=== PATIENT | female | born 1960 | race Caucasian/White ===

== ENCOUNTER 2016-09-16 13:33 | Emergency (ER) | payer OTHER ==
[~2016-09-16] VITALS: Ht 154.9 cm; Wt 48.0 kg
[~2016-09-16 13:33] MED LIST: CLEO300C2 PO; CYMB30CA PO; LAMO25TA PO; QUET100 PO; TRAM50 PO; ZYPR10TA PO
[2016-09-16 13:41] VITALS: BP 148/83; PULSE 71; RESP 16; TEMP 97.8
[2016-09-16 13:44] VITALS: BP 148/83; PULSE 74; RESP 16; O2SAT 100
--- NOTE | 2016-09-16 13:48 | PD ---
HPI Chief Complaint: Psychiatric Symptoms Time Seen by Provider: 13:48 Travel History International Travel<30 days: No Contact w/Intl Traveler<30days: No Traveled to known affect area: No History of Present Illness HPI 55-year-old female was brought in as a Akhtar act after her found her in the bathroom with a knife threatening to kill herself. Patient is an opiate addict. Patient seems to be quite irritated and does not want to answer my questions appropriately. So lot of verbal profanities being used by the patient. Does not appear to be in any significant distress however. She did say that she wanted to . [facility] Past Medical History Narrative Medical List of her past medical history as reviewed from the nursing note. Arthritis: Yes Asthma: No Autoimmune Disease: No Blood Disorders: No Bipolar Disorder: Yes Anxiety: No Depression: Yes Heart Rhythm Problems: No Cancer: No Cardiovascular Problems: Yes High Cholesterol: No Chemotherapy: No Chest Pain: No Congestive Heart Failure: No COPD: Yes Cerebrovascular Accident: No Diminished Hearing: No Endocrine: No Gastrointestinal Disorders: Yes GERD: Yes Glaucoma: No Genitourinary: No Headaches: No Hepatitis: No Hiatal Hernia: No Hypertension: Yes (PATIENT STATES "HAS BEEN OFF MEDICATION FOR A WHILE") Immune Disorder: No Kidney Stones: No Musculoskeletal: Yes Neurologic: No Psychiatric: Yes Reproductive: No Respiratory: Yes Migraines: No Myocardial Infarction: No Radiation Therapy: No Renal Failure: No Seizures: No Sickle Cell Disease: No Sleep Apnea: No Ulcer: No Influenza Vaccination: No ?: Not : 5 Para: 3 Miscarriage: 0 : 2 Ectopic : No Ovarian Cysts: No Tubal Ligation: No Past Surgical History Abdominal Surgery: No AICD: No Appendectomy: No Arteriovenous Shunt: No Cardiac Surgery: No Cholecystectomy: No Ear Surgery: No Endocrine Surgery: No Eye Surgery: No Genitourinary Surgery: No Gynecologic Surgery: No Hysterectomy: Yes (2002) Insulin Pump: No Joint Replacement: No Oral Surgery: No Pacemaker: No Thoracic Surgery: No Other Surgery: Yes (HYSTERECTOMY ) Social History Alcohol Use: No Tobacco Use: Yes ( 3/4 PPD X 17 YEARS) Substance Use: Yes (CRACK COCAINE. CLEAN FOR 3 MONTHS, IV DILAUDID) Allergies-Medications (Allergen,Severity, Reaction): Coded Allergies: Geodon (Verified Allergy, Mild, SOB, 02/28/16) Penicillin (Verified Allergy, Mild, CHILDHOOD REACTION, 02/28/16) Uncoded Allergies: MYCINS (Allergy, Mild, Nausea/Vomiting, 04/02/07) Comments List of her allergies reviewed from the nursing note. Reported Meds & Prescriptions Reported Meds & Active Scripts Active Reported Lamictal (Lamotrigine) 25 Mg Tab 25 Mg PO BID Quetiapine (Quetiapine Fumarate) 100 Mg Tab 100 Mg PO HS Olanzapine 10 Mg Tab 10 Mg PO HS Narrative Medication List of her home medications reviewed from the nursing note. Review of Systems Except as stated in HPI: all other systems reviewed are Neg Physical Exam Narrative GENERAL: Awake, alert, disheveled, emaciated SKIN: Warm and dry. HEAD: Atraumatic. Normocephalic. EYES: Pupils equal and round. No scleral icterus. No injection or drainage. ENT: No nasal bleeding or discharge. Mucous membranes pink and moist. NECK: Trachea midline. No JVD. CARDIOVASCULAR: Regular rate and rhythm. No murmur appreciated. RESPIRATORY: No accessory muscle use. Clear to auscultation. Breath sounds equal bilaterally. GASTROINTESTINAL: Abdomen soft, non-tender, nondistended. Hepatic and splenic margins not palpable. MUSCULOSKELETAL: No obvious deformities. No clubbing. No cyanosis. No edema. NEUROLOGICAL: Awake and alert. No obvious cranial nerve deficits. Motor grossly within normal limits. Normal speech. PSYCHIATRIC: Appropriate mood and affect; insight and judgment normal. Data Data Last Documented VS Vital Signs Date Time Temp Pulse Resp B/P Pulse Ox O2 Delivery O2 Flow Rate FiO2 09/17/16 06:26 62 19 124/78 98 Room Air 09/16/16 15:56 98.1 Orders Complete Blood Count With Diff (09/16/16 13:48) Comprehensive Metabolic Panel (09/16/16 13:48) Drug Screen, Random Urine (09/16/16 13:48) Alcohol (Ethanol) (09/16/16 13:48) Psych Screen (09/16/16 13:48) Diphenhydramine (Benadryl) (09/16/16 18:00) Acetaminophen (Tylenol) (09/16/16 18:00) Diphenhydramine (Benadryl) (09/16/16 21:15) Diet Regular Basic (09/17/16 Breakfast) Acetaminophen (Tylenol) (09/17/16 02:15) Clonidine (Catapres) (09/17/16 07:45) Benztropine (Cogentin) (09/17/16 07:45) Loperamide (Imodium) (09/17/16 09:30) Labs Laboratory Tests Test 09/16/16 09/16/16 14:18 14:35 White Blood Count 7.3 TH/MM3 Red Blood Count 4.59 MIL/MM3 Hemoglobin 12.5 GM/DL Hematocrit 37.2 % Mean Corpuscular Volume 80.9 FL Mean Corpuscular Hemoglobin 27.2 PG Mean Corpuscular Hemoglobin 33.6 % Concent Red Cell Distribution Width 17.0 % Platelet Count 609 TH/MM3 Mean Platelet Volume 7.1 FL Neutrophils (%) (Auto) 61.6 % Lymphocytes (%) (Auto) 31.3 % Monocytes (%) (Auto) 5.1 % Eosinophils (%) (Auto) 1.1 % Basophils (%) (Auto) 0.9 % Neutrophils # (Auto) 4.5 TH/MM3 Lymphocytes # (Auto) 2.3 TH/MM3 Monocytes # (Auto) 0.4 TH/MM3 Eosinophils # (Auto) 0.1 TH/MM3 Basophils # (Auto) 0.1 TH/MM3 CBC Comment DIFF FINAL Differential Comment Sodium Level 139 MEQ/L Potassium Level 4.0 MEQ/L Chloride Level 106 MEQ/L Carbon Dioxide Level 24.6 MEQ/L Anion Gap 8 MEQ/L Blood Urea Nitrogen 7 MG/DL Creatinine 0.50 MG/DL Estimat Glomerular Filtration 128 ML/MIN Rate Random Glucose 95 MG/DL Calcium Level 8.9 MG/DL Total Bilirubin 0.3 MG/DL Aspartate Amino Transf 13 U/L (AST/SGOT) Alanine Aminotransferase 22 U/L (ALT/SGPT) Alkaline Phosphatase 107 U/L Total Protein 7.8 GM/DL Albumin 3.7 GM/DL Ethyl Alcohol Level LESS THAN 3 MG/DL Urine Opiates Screen NEG Urine Barbiturates Screen NEG Urine Amphetamines Screen NEG Urine Benzodiazepines Screen POS Urine Cocaine Screen NEG Urine Cannabinoids Screen NEG MDM Medical Decision Making Medical Screen Exam Complete: Yes Emergency Medical Condition: Yes Medical Record Reviewed: Yes Differential Diagnosis Opiate dependence, suicidal ideation, anxiety Narrative Course 3:09 PM blood test results of back and patient is medically cleared for psych screen. Procedures EKG Prior to Arrival: No TatiShravanti R. MD Sep 16, 2016 13:48
[2016-09-16 14:36] LABS: AUTOMATED NEUTROPHIL # 4.5 TH/MM3 (1.8-7.7); BASOPHIL # 0.1 TH/MM3 (0-0.2); BASOPHIL % 0.9 % (0.0-2.0); EOSINOPHIL # 0.1 TH/MM3 (0-0.4); EOSINOPHIL % 1.1 % (0.0-4.0); HEMATOCRIT 37.2 % (35.0-46.0); HEMO FLAGS DIFF FINAL; LYMPH % 31.3 % (9.0-44.0); LYMPHOCYTE # 2.3 TH/MM3 (1.0-4.8); MEAN CELL VOLUME 80.9 FL (80.0-100.0); MEAN CORPUSCULAR HEMOGLOBIN 27.2 PG (27.0-34.0); MEAN CORPUSCULAR HGB CONC 33.6 % (32.0-36.0); MONO % 5.1 % (0.0-8.0); NEUT % 61.6 % (16.0-70.0); PLATELET COUNT 609 TH/MM3 (150-450); RED BLOOD COUNT 4.59 MIL/MM3 (4.00-5.30); WHITE BLOOD COUNT 7.3 TH/MM3 (4.0-11.0)
[2016-09-16 14:45] LABS: ANION GAP 8 MEQ/L (5-15); AST (GOT) 13 U/L (15-37); BICARBONATE 24.6 MEQ/L (21.0-32.0); BLOOD UREA NITROGEN 7 MG/DL (7-18); CHLORIDE 106 MEQ/L (98-107); GLOMERULAR FILTRATION RATE 128 ML/MIN (>89); SODIUM (NA) 139 MEQ/L (136-145)
[2016-09-16 14:48] LABS: ALKALINE PHOSPHATASE 107 U/L (45-117); ALT (GPT) 22 U/L (10-53); TOTAL BILIRUBIN ADULT 0.3 MG/DL (0.2-1.0)
[2016-09-16 14:56] LABS: AMPHETAMINE, URINE NEG (NEG); BARBITURATES, URINE NEG (NEG); COCAINE, URINE NEG (NEG)
[2016-09-16 15:56] VITALS: BP 143/93; PULSE 95; RESP 18; TEMP 98.1; O2SAT 94
[2016-09-16 17:50] VITALS: BP_SYST 129; BP_SYST 166; BP_DIAS 74; BP_DIAS 75; PULSE 56; PULSE 75; RESP 16; O2SAT 100; O2SAT 94
[2016-09-16] MEDS ORDERED: ACETAMINOPHEN 325 MG TAB PO ONE (18:00)
[2016-09-16] MEDS ORDERED: diphenhydrAMINE HCL 50 MG CAP PO ONE ×2 (18:00→21:15)
[2016-09-16 22:18] VITALS: BP 127/81; PULSE 56; RESP 18; O2SAT 98
[2016-09-16] MEDS ORDERED: OLAN10TA PO (23:46)
[2016-09-16] MEDS ORDERED: QUET1TAB8 PO (23:46)
[2016-09-16] MEDS ORDERED: LAMO25 PO (23:48)
[2016-09-17 02:10] VITALS: BP 111/68; PULSE 62; RESP 19; O2SAT 99
[2016-09-17] MEDS ORDERED: ACETAMINOPHEN 325 MG TAB PO ONE (02:15)
[2016-09-17 06:26] VITALS: BP 124/78; PULSE 62; RESP 19; O2SAT 98
[2016-09-17] MEDS ORDERED: cloNIDine HCL 0.2 MG TAB PO ONE (07:45)
[2016-09-17] MEDS ORDERED: BENZTROPINE MESYLATE 1 MG TAB PO ONE (07:45)
--- NOTE | 2016-09-17 09:06 | PD.CONS ---
Provisional Diagnosis Admission Date Hume I. Sustain inducible disorder, opiate use disorder, bipolar by history, Hume II. Deferred Hume III. GERD, back injuries History of Present Illness Service Psychiatry Consult Requested By Primary Care Physician No Primary Care Physician HPI The patient is a 55-year-old woman, single, unemployed, on SSI, domicile with roommate, psychiatric history of bipolar disorder, IV heroine use disorder, multiple psychiatric hospitalizations, suicide attempts, medical history of GERD, back injuries, who was brought in as a Akhtar act after her found her in the bathroom with a knife threatening to kill herself. as per ER note "Patient is an opiate addict. Patient seems to be quite irritated and does not want to answer my questions appropriately. So lot of verbal profanities being used by the patient. Does not appear to be in any significant distress however. She did say that she wanted to ". On psychiatric evaluation today patient was found very irritable, invisible distress, pain, complaining of opiate withdrawal. Patient says that her motivation yesterday was to be Akhtar acted to go to [facility] for opiate detox. She says that she hasn't used any opiates for the last 2 days, because she didn't have any money, she is in cold turkey, "I feel like dying". Patient is motivated to go to detox [facility], she denies suicidal or homicidal ideation. She denies visual and auditory hallucinations. She reports acute muscle pains, lacrimation, diarrhea, nausea, anxiety, sweatings. Patient denies depression, denies perceptual disturbances. She reports daily use of 2-3 bags of heroine, sometimes 2-3 beers of Dilaudid IV, denies alcohol, and other drugs. Review of Systems Constitutional: COMPLAINS OF: Diaphoretic episodes, Dizziness Endocrine: DENIES: Abnorml menstrual pattern, Heat/cold intolerance, Polydipsia , Polyuria, Polyphagia Eyes: COMPLAINS OF: Blurred vision, DENIES: Diplopia, Eye inflammation, Eye pain, Vision loss, Photosensitivity, Double Vision Ears, nose, mouth, throat: DENIES: Tinnitus, Hearing loss, Vertigo, Nasal discharge, Oral lesions, Throat pain, Hoarseness, Ear Pain, Running Nose, Epistaxis, Sinus Pain, Toothache, Odynophagia Respiratory: DENIES: Apneas, Cough, Snoring, Wheezing, Hemoptysis, Sputum production, Shortness of breath Cardiovascular: DENIES: Chest pain, Palpitations, Syncope, Dyspnea on Exertion , PND, Lower Extremity Edema, Orthopnea, Claudication Gastrointestinal: COMPLAINS OF: Diarrhea, Nausea, Vomiting, DENIES: Abdominal pain, Black stools, Bloody stools, Constipation, Difficulty Swallowing, Anorexia Genitourinary: DENIES: Abnormal vaginal bleeding, Dysmenorrhea, Dyspareunia, Sexual dysfunction, Urinary frequency, Urinary incontinence, Urgency, Hematuria , Dysuria, Nocturia, Vaginal discharge Musculoskeletal: COMPLAINS OF: Joint pain, Muscle aches Integumentary: DENIES: Abnormal pigmentation, Pruritus, Rash, Nail changes, Breast masses, Breast skin changes, Nipple discharge Hematologic/lymphatic: DENIES: Bruising, Lymphadenopathy Immunologic/allergic: DENIES: Eczema, Urticaria Neurologic: COMPLAINS OF: Abnormal gait, Headache, Localized weakness, Paresthesias, Seizures, Speech Problems, Tremor, Poor Balance Psychiatric: COMPLAINS OF: Anxiety, DENIES: Confusion, Mood changes, Depression, Hallucinations, Agitation, Suicidal Ideation, Homicidal Ideation, Delusions Past Family Social History Coded Allergies: Geodon (Verified Allergy, Mild, SOB, 02/28/16) Penicillin (Verified Allergy, Mild, CHILDHOOD REACTION, 02/28/16) Uncoded Allergies: MYCINS (Allergy, Mild, Nausea/Vomiting, 04/02/07) Reported Medications Lamotrigine (Lamictal)25 Mg Tab25 Mg PO BID #60 TAB Ref 0 09/16/16 Quetiapine 100 Mg [id number] Mg PO HS #30 TAB Ref 0 09/16/16 Olanzapine 10 Mg Tab10 Mg PO HS #30 TAB Ref 0 09/16/16 Social History Patient was born in [facility], she lives with a roommate in [place], she is unemployed, on SSI, her highest level of education is high school. Physical Exam Vital Signs Vital Signs Date Time Temp Pulse Resp B/P Pulse Ox O2 Delivery O2 Flow Rate FiO2 09/17/16 06:26 62 19 124/78 98 Room Air 09/16/16 15:56 98.1 Mental Status Examination Speech: Unremarkable Orientation: x3 Memory: Unremarkable Thought Process: Logical Thought Content: Unremarkable Hallucination Type: None Attention and Concentration: Good Suicidal Ideation: No Previous Suicide Attempts: Yes Homicidal Ideation: No Previous Homicide Attempts: No Insight: Good Judgement: WNL Affect: Irritable Mood: Anxious Motor Activity: Normal gait Assessment & Plan Problem List: (1) Substance induced mood disorder Assessment & Plan: The moment of this evaluation the patient is acutely withdrawing of opiates, she reports anxiety, joint and muscle pains, vomits, nausea, diarrhea. She denies suicidal or homicidal ideation. Patient is motivated to be discharged to a detox program. At this moment the patient does not meet criteria for psychiatric admission. Patient will benefit greatly of detoxification of opiates and then long-term rehabilitation for. Support, motivation, psycho education provided. Will give clonidine 0.2 mg, benztropine 25 mg, loperamide and ibuprofen for acute opiate withdrawal symptoms. Akhtar act will be lifted. ICD Code: F19.94 Assessment & Plan Estimated LOS: days Link Dougherty MD Sep 17, 2016 09:06
[2016-09-17] MEDS ORDERED: LOPERAMIDE HCL 2 MG CAP PO ONE (09:30)
== END 2016-09-17 11:10 | disposition home or self-care (01) ==
LOC: NEPA 13:33 → NEPJ 09-17 11:10
DX: F31.9 Bipolar disorder, unspecified (principal); K21.9 Gastro-esophageal reflux disease without esophagitis; J44.9 Chronic obstructive pulmonary disease, unspecified; I10 Essential (primary) hypertension
CPT/HCPCS: 80053; 80307; 80320; 85025; 99283; Q0163

== ENCOUNTER 2018-03-18 00:19 | Inpatient (IN) ==
[2018-03-18] MEDS ORDERED: Sod Chloride 0.9% Inj 1,000 ML IV.SIG ONE (00:33)
[2018-03-18] MEDS ORDERED: Naloxone Inj 2 MG/2 ML Vial ONE (00:35)
[2018-03-18] MEDS ORDERED: Naloxone Inj 0.4 MG/ML Vial IV.PUSH ONE ×3 (00:46→00:59)
[2018-03-18 00:53] LABS: ABG PCO2 47 mmHg (38-42); ABG PO2 95 mmHg (61-120)
--- NOTE | 2018-03-18 00:57 | ED ---
HPI General Chief Complaint: Overdose Stated Complaint: Poss overdose/EVAC Time Seen by Provider: 03/18/18 00:33 History of Present Illness HPI Narrative: 57-year-old female presents from her hotel room and care paramedics for evaluation of probable overdose. Patient history was provided according to paramedics by her reported significant other. Patient was last reportedly identified as her normal at 11:30 PM. Patient was found unresponsive in hotel room. Paramedics were called. Patient with GCS of 3 given 2 mg of Narcan IM with improvement of GCS to 9. Patient unable to provide any useful history as essentially unresponsive except to painful stimuli with moaning and reaching for area of discomfort. According to paramedics upon their arrival pupils were pinpoint and have improved to 3 mm after Narcan. No reported injury or fall. Patient with history of substance abuse heroin abuse and alcohol abuse. Patient with reported history of bipolar disorder. Patient reportedly with questionable history of seizure disorder as significant other identified that she does take Ativan and/or Xanax. Patient's random glucose was mildly elevated. Per paramedics no vomiting at the scene or in route to the hospital. Related Data Home Medications Medication Instructions Recorded Confirmed levetiracetam [Keppra] 250 mg PO Q12H 03/20/18 03/20/18 lorazepam 0.5 mg PO BID 03/20/18 03/20/18 ranitidine HCl [Zantac 75] 75 mg PO BID PRN 03/20/18 03/20/18 Allergies Allergy/AdvReac Type Severity Reaction Status Date / Time erythromycin base Allergy Intermediate Nausea/Vomi Verified 03/20/18 00:07 ting penicillin G Allergy Mild CHILDHOOD Unverified 04/15/17 15:22 REACTION ziprasidone Allergy Mild SOB Unverified 04/15/17 15:22 Review of Systems ROS Unobtainable unobtainable due to mental status PMFSH Medical History Medical History Medical history unknown (Acute) Surgical history unknown (Acute) Social History Social History Substance History: Active Abuse Second Hand Smoke Exposure: Yes Smoking Status: Current every day smoker Tobacco Type: Cigarettes How Often Do You Have a Drink Containing Alcohol: Never Recent Travel in [facility] within the Last 8 Weeks: No Recent Out of Country Travel within the Last 8 Weeks: No Substance Abuse Detail Benzodiazepines: Substance Use Status: Active Heroin: Substance Use Status: Active Immunization History Tetanus Immunization: Unable to Assess Hx Influenza Vaccine This Season: Unable to Assess Exam Narrative Exam Narrative: GENERAL: Well-nourished, well-developed patient. With nonrebreather mask in place and nasal trumpet in place with a GCS E:2; M: 5; V:3 ; patient with evidence of vomitus to the right side of the face. SKIN: Focused skin assessment warm/dry. HEAD: Normocephalic. EYES: No scleral icterus. No injection or drainage. NECK: Supple, trachea midline. No JVD or lymphadenopathy. CARDIOVASCULAR: Regular rate and rhythm without murmurs, gallops, or rubs. RESPIRATORY: Breath sounds equal bilaterally. No accessory muscle use. GASTROINTESTINAL: Abdomen soft, non-tender, nondistended. MUSCULOSKELETAL: No cyanosis, or edema. BACK: Nontender without obvious deformity. No CVA tenderness. Course Initial Documented Vital Signs Temperature 97.7 F 03/18/18 00:29 Pulse Rate 103 H 03/18/18 00:29 Respiratory Rate 12 03/18/18 00:29 Blood Pressure 172/122 H 03/18/18 00:29 Pulse Oximetry 95 03/18/18 00:29 Last Documented Vital Signs Temperature 99.1 F 03/19/18 16:00 Pulse Rate 100 H 03/19/18 16:00 Respiratory Rate 17 03/19/18 16:00 Blood Pressure 130/66 03/19/18 16:00 Pulse Oximetry 95 03/19/18 16:00 Critical Care Time Critical Care Time: Yes Total Critical Care Time: 35 Attestation: Aggregate critical care time was 35 minutes. Time to perform other separately billable procedures was not included in the critical care time. My time did not include minutes spent treating any other patients simultaneously or on activities that did not directly contribute to the patient's treatment. The services I provided to this patient were to treat and/or prevent clinically significant deterioration that could result in: Respiratory failure, arrhythmia , I provided critical care services requiring my management, as noted below: Chart data review, documentation time, medication orders and management, vital sign assessments/reviewing monitor data, ordering and reviewing lab tests, ordering and interpreting/reviewing x-rays and diagnostic studies, care of the patient and discussion of the patient with the admitting physicians. Medical Decision Making MDM Narrative Medical decision making narrative: 57-year-old female with bipolar disorder comes in with history of being unresponsive and depressed LOC at this time after 2 mg of Narcan IM patient with O2 sat on nonrebreather mask 78-88% with good waveform. ABG ordered peripheral IV access ordered. IV fluids administered; ABG pH 7.33 PCO2 47 PO2 only 95 on 15 L nonrebreather mask 94% sat hemoglobin 10.7 bicarb is 24 base excess -1, mild respiratory acidosis; patient with decreasing LOC and respiratory effort additional Narcan 0.8 mg administered IV At 1 AM after Narcan patient awakes to verbal stimuli answers simple questions with 'yes'/ 'no responses; chest x-ray reveals no lobar infiltrate; patient sent to CT for imaging of brain. Additional dose of Narcan administered 0.4 mg IV Patient placed on narcan infusion ---case discussed with melter supervisor open hear[employer] --will accept admission to ICU service @ 0700 patient clinically improved narcan infusion tapered. GCS 14. Urine drug screen is resulted in positive for opiates and benzodiazepines--- patient admits to using heroin suspect overdose and respiratory failure and depression related to combination of opiate and benzodiazepine abuse and use. Patient remains somnolent but more awake with passage of time and clearance of opiate ingestion. Patient reportedly chronically on Ativan or Xanax therefore Romazicon not administered due to risk for seizure. CT brain noncontrast reveals no acute abnormalities. CBC is automated differential values are grossly normal range except for mild lymphocytosis. Chemistries remain pending. Differential Diagnosis Differential Diagnosis: Polysubstance ingestion; overdose heroin, alcohol ingestion, metabolic encephalopathy, anoxia Medical Records Medical records reviewed: Yes I reviewed the patient's medical records. Lab Data Result diagrams: 03/19/18 05:50 03/19/18 05:50 Lab Results 03/18/18 03/18/18 03/18/18 Range/Units 00:30 00:50 00:50 WBC 9.1 (4.0-11.0) th/mm3 RBC 4.43 (4.00-5.30) mil/mm3 Hgb 12.8 (11.6-15.3) gm/dL Hct 39.3 (35.0-46.0) % MCV 88.7 (80.0-100.0) fL MCH 28.9 (27.0-34.0) pg MCHC 32.5 (32.0-36.0) % RDW 15.3 (11.6-17.2) % Plt Count 292 (150-450) th/mm3 MPV 8.2 (7.0-11.0) fL Neut % (Auto) 42.5 (16.0-70.0) % Lymph % (Auto) 47.9 H (9.0-44.0) % [place] % (Auto) 8.5 H (0.0-8.0) % Eos % (Auto) 0.8 (0.0-4.0) % Baso % (Auto) 0.3 (0.0-2.0) % Neut # (Auto) 3.9 (1.8-7.7) th/mm3 Lymph # (Auto) 4.4 (1.0-4.8) th/mm3 [place] # (Auto) 0.8 (0.0-0.9) th/mm3 Eos # (Auto) 0.1 (0.0-0.4) th/mm3 Baso # (Auto) 0.0 (0.0-0.2) th/mm3 WBC Differential . Differential Comment Auto diff final Puncture Site Left femoral Patient Temperature 98.6 O2 Saturation 94 (90-100) % ABG pH 7.33 L (7.380-7.420) ABG pCO2 47 H (38-42) mmHg ABG pO2 95 (61-120) mmHg ABG HCO3 24 (22-26) mmol/L ABG O2 Content 14.3 (12.0-20.0) Vol % ABG Base Excess -1.0 (-2-2) mmol/L ABG Methemoglobin 0.3 (0-2) % Hemoglobin 10.7 L (12.0-16.0) G/DL Carboxyhemoglobin 2.5 (0-4) % O2 Delivery Device Liter Flow 10.00 L/M Inspired O2 21 % Critical Value No Sodium 137 (136-145) meq/L Potassium 4.2 (3.5-5.1) meq/L Chloride 104 (98-107) meq/L Carbon Dioxide 22.1 (21.0-32.0) meq/L Anion Gap 11 (5-15) meq/L BUN 6 L (7-18) mg/dL Creatinine 0.94 (0.50-1.00) mg/dL Estimated GFR 61 L (>89) mL/min Random Glucose 214 H (74-106) mg/dL Lactic Acid (0.4-2.0) mmol/L Calcium 8.4 L (8.5-10.1) mg/dL Magnesium (1.5-2.5) mg/dL Total Bilirubin 0.8 (0.2-1.0) mg/dL AST 31 (15-37) U/L ALT 25 (10-53) U/L Alkaline Phosphatase 98 (45-117) U/L Troponin I Less than 0.02 L (0.02-0.05) ng/mL Total Protein 8.4 H (6.4-8.2) g/dL Albumin 3.7 (3.4-5.0) g/dL Lipase 50 L (73-393) U/L Urine Color (Yellw/Straw) Urine Clarity (Clear) Urine pH (5.0-8.5) Ur Specific [place] (1.002-1.035) Urine Protein (Neg-Trace) mg/dL Urine Glucose (UA) (Negative) mg/dL Urine Ketones (Negative) mg/dL Urine Occult Blood (Negative) Urine Nitrate (Negative) Urine Bilirubin (Negative) Urine Urobilinogen (Less than 2) mg/dL Ur Leukocyte Esterase (Negative) Urine RBC (0-3) /hpf Urine WBC (0-5) /hpf Ur Squamous Epith Cells (0-5) /hpf Hyaline Casts (0-3) /lpf Micro UA Comment Urine Culture Comments Nasal Screen MRSA (PCR) (Negative) Salicylates (2.8-20.0) mg/dL Urine Opiates Screen (Neg) Acetaminophen Less than 2.0 L (10.0-30.0) mcg/mL Ur Barbiturates Screen (Neg) Ur Amphetamines Screen (Neg) U Benzodiazepines Scrn (Neg) Urine Cocaine Screen (Neg) U Cannabinoids Screen (Neg) Serum Alcohol Less than 3 (0-5) mg/dL 03/18/18 03/18/18 03/18/18 Range/Units 00:50 00:50 00:50 WBC (4.0-11.0) th/mm3 RBC (4.00-5.30) mil/mm3 Hgb (11.6-15.3) gm/dL Hct (35.0-46.0) % MCV (80.0-100.0) fL MCH (27.0-34.0) pg MCHC (32.0-36.0) % RDW (11.6-17.2) % Plt Count (150-450) th/mm3 MPV (7.0-11.0) fL Neut % (Auto) (16.0-70.0) % Lymph % (Auto) (9.0-44.0) % [place] % (Auto) (0.0-8.0) % Eos % (Auto) (0.0-4.0) % Baso % (Auto) (0.0-2.0) % Neut # (Auto) (1.8-7.7) th/mm3 Lymph # (Auto) (1.0-4.8) th/mm3 [place] # (Auto) (0.0-0.9) th/mm3 Eos # (Auto) (0.0-0.4) th/mm3 Baso # (Auto) (0.0-0.2) th/mm3 WBC Differential Differential Comment Puncture Site Patient Temperature O2 Saturation (90-100) % ABG pH (7.380-7.420) ABG pCO2 (38-42) mmHg ABG pO2 (61-120) mmHg ABG HCO3 (22-26) mmol/L ABG O2 Content (12.0-20.0) Vol % ABG Base Excess (-2-2) mmol/L ABG Methemoglobin (0-2) % Hemoglobin (12.0-16.0) G/DL Carboxyhemoglobin (0-4) % O2 Delivery Device Liter Flow L/M Inspired O2 % Critical Value Sodium (136-145) meq/L Potassium (3.5-5.1) meq/L Chloride (98-107) meq/L Carbon Dioxide (21.0-32.0) meq/L Anion Gap (5-15) meq/L BUN (7-18) mg/dL Creatinine (0.50-1.00) mg/dL Estimated GFR (>89) mL/min Random Glucose (74-106) mg/dL Lactic Acid (0.4-2.0) mmol/L Calcium (8.5-10.1) mg/dL Magnesium (1.5-2.5) mg/dL Total Bilirubin (0.2-1.0) mg/dL AST (15-37) U/L ALT (10-53) U/L Alkaline Phosphatase (45-117) U/L Troponin I (0.02-0.05) ng/mL Total Protein (6.4-8.2) g/dL Albumin (3.4-5.0) g/dL Lipase (73-393) U/L Urine Color Straw (Yellw/Straw) Urine Clarity Clear (Clear) Urine pH 6.0 (5.0-8.5) Ur Specific [place] 1.003 (1.002-1.035) Urine Protein 30 H (Neg-Trace) mg/dL Urine Glucose (UA) 500 or greater (Negative) mg/dL Urine Ketones Negative (Negative) mg/dL Urine Occult Blood Negative (Negative) Urine Nitrate Negative (Negative) Urine Bilirubin Negative (Negative) Urine Urobilinogen Less than 2 (Less than 2) mg/dL Ur Leukocyte Esterase Negative (Negative) Urine RBC 1 (0-3) /hpf Urine WBC 1 (0-5) /hpf Ur Squamous Epith Cells <1 (0-5) /hpf Hyaline Casts 1 (0-3) /lpf Micro UA Comment Cath-culture not ind Urine Culture Comments Cath-cult not ind Nasal Screen MRSA (PCR) (Negative) Salicylates Less than 1.7 L (2.8-20.0) mg/dL Urine Opiates Screen Pos H (Neg) Acetaminophen (10.0-30.0) mcg/mL Ur Barbiturates Screen Neg (Neg) Ur Amphetamines Screen Neg (Neg) U Benzodiazepines Scrn Pos H (Neg) Urine Cocaine Screen Neg (Neg) U Cannabinoids Screen Neg (Neg) Serum Alcohol (0-5) mg/dL 03/18/18 03/18/18 03/18/18 Range/Units 01:00 03:50 10:45 WBC (4.0-11.0) th/mm3 RBC (4.00-5.30) mil/mm3 Hgb (11.6-15.3) gm/dL Hct (35.0-46.0) % MCV (80.0-100.0) fL MCH (27.0-34.0) pg MCHC (32.0-36.0) % RDW (11.6-17.2) % Plt Count (150-450) th/mm3 MPV (7.0-11.0) fL Neut % (Auto) (16.0-70.0) % Lymph % (Auto) (9.0-44.0) % [place] % (Auto) (0.0-8.0) % Eos % (Auto) (0.0-4.0) % Baso % (Auto) (0.0-2.0) % Neut # (Auto) (1.8-7.7) th/mm3 Lymph # (Auto) (1.0-4.8) th/mm3 [place] # (Auto) (0.0-0.9) th/mm3 Eos # (Auto) (0.0-0.4) th/mm3 Baso # (Auto) (0.0-0.2) th/mm3 WBC Differential Differential Comment Puncture Site Patient Temperature O2 Saturation (90-100) % ABG pH (7.380-7.420) ABG pCO2 (38-42) mmHg ABG pO2 (61-120) mmHg ABG HCO3 (22-26) mmol/L ABG O2 Content (12.0-20.0) Vol % ABG Base Excess (-2-2) mmol/L ABG Methemoglobin (0-2) % Hemoglobin (12.0-16.0) G/DL Carboxyhemoglobin (0-4) % O2 Delivery Device Liter Flow L/M Inspired O2 % Critical Value Sodium (136-145) meq/L Potassium (3.5-5.1) meq/L Chloride (98-107) meq/L Carbon Dioxide (21.0-32.0) meq/L Anion Gap (5-15) meq/L BUN (7-18) mg/dL Creatinine (0.50-1.00) mg/dL Estimated GFR (>89) mL/min Random Glucose (74-106) mg/dL Lactic Acid 2.9 H 0.9 (0.4-2.0) mmol/L Calcium (8.5-10.1) mg/dL Magnesium (1.5-2.5) mg/dL Total Bilirubin (0.2-1.0) mg/dL AST (15-37) U/L ALT (10-53) U/L Alkaline Phosphatase (45-117) U/L Troponin I (0.02-0.05) ng/mL Total Protein (6.4-8.2) g/dL Albumin (3.4-5.0) g/dL Lipase (73-393) U/L Urine Color (Yellw/Straw) Urine Clarity (Clear) Urine pH (5.0-8.5) Ur Specific [place] (1.002-1.035) Urine Protein (Neg-Trace) mg/dL Urine Glucose (UA) (Negative) mg/dL Urine Ketones (Negative) mg/dL Urine Occult Blood (Negative) Urine Nitrate (Negative) Urine Bilirubin (Negative) Urine Urobilinogen (Less than 2) mg/dL Ur Leukocyte Esterase (Negative) Urine RBC (0-3) /hpf Urine WBC (0-5) /hpf Ur Squamous Epith Cells (0-5) /hpf Hyaline Casts (0-3) /lpf Micro UA Comment Urine Culture Comments Nasal Screen MRSA (PCR) Not detected (Negative) Salicylates (2.8-20.0) mg/dL Urine Opiates Screen (Neg) Acetaminophen (10.0-30.0) mcg/mL Ur Barbiturates Screen (Neg) Ur Amphetamines Screen (Neg) U Benzodiazepines Scrn (Neg) Urine Cocaine Screen (Neg) U Cannabinoids Screen (Neg) Serum Alcohol (0-5) mg/dL 03/19/18 03/19/18 Range/Units 05:50 05:50 WBC 6.5 (4.0-11.0) th/mm3 RBC 3.40 L (4.00-5.30) mil/mm3 Hgb 10.0 L D (11.6-15.3) gm/dL Hct 30.2 L (35.0-46.0) % MCV 88.9 (80.0-100.0) fL MCH 29.6 (27.0-34.0) pg MCHC 33.3 (32.0-36.0) % RDW 15.3 (11.6-17.2) % Plt Count 292 (150-450) th/mm3 MPV 8.0 (7.0-11.0) fL Neut % (Auto) 49.5 (16.0-70.0) % Lymph % (Auto) 35.5 (9.0-44.0) % [place] % (Auto) 7.7 (0.0-8.0) % Eos % (Auto) 6.8 H (0.0-4.0) % Baso % (Auto) 0.5 (0.0-2.0) % Neut # (Auto) 3.2 (1.8-7.7) th/mm3 Lymph # (Auto) 2.3 (1.0-4.8) th/mm3 [place] # (Auto) 0.5 (0.0-0.9) th/mm3 Eos # (Auto) 0.4 (0.0-0.4) th/mm3 Baso # (Auto) 0.0 (0.0-0.2) th/mm3 WBC Differential . Differential Comment Auto diff final Puncture Site Patient Temperature O2 Saturation (90-100) % ABG pH (7.380-7.420) ABG pCO2 (38-42) mmHg ABG pO2 (61-120) mmHg ABG HCO3 (22-26) mmol/L ABG O2 Content (12.0-20.0) Vol % ABG Base Excess (-2-2) mmol/L ABG Methemoglobin (0-2) % Hemoglobin (12.0-16.0) G/DL Carboxyhemoglobin (0-4) % O2 Delivery Device Liter Flow L/M Inspired O2 % Critical Value Sodium 141 (136-145) meq/L Potassium 3.8 (3.5-5.1) meq/L Chloride 107 (98-107) meq/L Carbon Dioxide 24.0 (21.0-32.0) meq/L Anion Gap 10 (5-15) meq/L BUN 7 (7-18) mg/dL Creatinine 0.52 (0.50-1.00) mg/dL Estimated GFR Greater than 89 (>89) mL/min Random Glucose 78 D (74-106) mg/dL Lactic Acid (0.4-2.0) mmol/L Calcium 8.4 L (8.5-10.1) mg/dL Magnesium 2.1 (1.5-2.5) mg/dL Total Bilirubin 0.7 (0.2-1.0) mg/dL AST 16 (15-37) U/L ALT 17 (10-53) U/L Alkaline Phosphatase 75 (45-117) U/L Troponin I (0.02-0.05) ng/mL Total Protein 6.5 D (6.4-8.2) g/dL Albumin 2.9 L D (3.4-5.0) g/dL Lipase (73-393) U/L Urine Color (Yellw/Straw) Urine Clarity (Clear) Urine pH (5.0-8.5) Ur Specific [place] (1.002-1.035) Urine Protein (Neg-Trace) mg/dL Urine Glucose (UA) (Negative) mg/dL Urine Ketones (Negative) mg/dL Urine Occult Blood (Negative) Urine Nitrate (Negative) Urine Bilirubin (Negative) Urine Urobilinogen (Less than 2) mg/dL Ur Leukocyte Esterase (Negative) Urine RBC (0-3) /hpf Urine WBC (0-5) /hpf Ur Squamous Epith Cells (0-5) /hpf Hyaline Casts (0-3) /lpf Micro UA Comment Urine Culture Comments Nasal Screen MRSA (PCR) (Negative) Salicylates (2.8-20.0) mg/dL Urine Opiates Screen (Neg) Acetaminophen (10.0-30.0) mcg/mL Ur Barbiturates Screen (Neg) Ur Amphetamines Screen (Neg) U Benzodiazepines Scrn (Neg) Urine Cocaine Screen (Neg) U Cannabinoids Screen (Neg) Serum Alcohol (0-5) mg/dL Imaging Data Radiologist's impression: Chest X-Ray 03/18/18 00:33 CONCLUSION: Minimal left basilar atelectasis or scarring. No effusion or pneumothorax. Head CT 03/18/18 00:33 CONCLUSION: 1. No acute intracranial abnormalities. Left maxillary sinus disease. Discharge Plan Discharge Disposition Patient Disposition: Left Against Medical Advice Discharge Order Discharge Orders: AMA Discharge (Routine); Ordered 03/19/18 Ordered By: Jerilyn Crystal Discharge Details Diagnosis: Drug overdose Physicians Team ED Provider: Janeth Jarvis Primary Care Provider: Primary Care Candace Amezcua Attending Provider: Aleyda Moore Discharge Interventions Interventions: ED Discharge Assessment Last Done: 03/18/18 10:45 Vital Signs Last Done: 03/18/18 06:52 Status ED Status: Left Department Discharge Information Discharge Date/Time: 03/18/18 10:45
[2018-03-18 01:14] LABS: Baso % (Auto) 0.3 % (0.0-2.0); Eos # (Auto) 0.1 th/mm3 (0.0-0.4); Eos % (Auto) 0.8 % (0.0-4.0); Hematocrit 39.3 % (35.0-46.0); Hemoglobin 12.8 gm/dL (11.6-15.3); Lymph # (Auto) 4.4 th/mm3 (1.0-4.8); Lymph % (Auto) 47.9 % (9.0-44.0); Mean Corpuscular HGB Conc 32.5 % (32.0-36.0); Mean Corpuscular Hemoglobin 28.9 pg (27.0-34.0); Mean Corpuscular Volume 88.7 fL (80.0-100.0); Mean Platelet Volume 8.2 fL (7.0-11.0); Mono # (Auto) 0.8 th/mm3 (0.0-0.9); Mono % (Auto) 8.5 % (0.0-8.0); Neut # (Auto) 3.9 th/mm3 (1.8-7.7); Neut % (Auto) 42.5 % (16.0-70.0); Platelet Count 292 th/mm3 (150-450); Red Blood Count 4.43 mil/mm3 (4.00-5.30); Red Cell Distribution Width 15.3 % (11.6-17.2); White Blood Count 9.1 th/mm3 (4.0-11.0)
[2018-03-18 01:19] LABS: Bilirubin,Urine Negative (Negative); Clarity,Urine Clear (Clear); Color,Urine Straw (Yellw/Straw); Glucose,Urine (UA) 500 or Greater mg/dL (Negative); Hyaline Casts,Urine 1 /lpf (0-3); Leukocyte Esterase,Urine Negative (Negative); Nitrite,Urine Negative (Negative); Specific Gravity,Urine 1.003 (1.002-1.035); Squamous Epithelial Cell,Urine <1 /hpf (0-5)
[2018-03-18 01:20] LABS: Amphetamine Screen,Urine Neg (Neg); Barbiturate Screen,Urine Neg (Neg); Cannabinoid Screen,Urine Neg (Neg); Cocaine Screen,Urine Neg (Neg)
[2018-03-18 01:22] LABS: Opiate Screen,Urine Pos (Neg)
--- NOTE | 2018-03-18 01:31 | CT ---
EXAM DATE: 03/18/2018 1:12 AM EDT AGE/SEX: 57 years / Female INDICATIONS: Altered mental status. CLINICAL DATA: This is the patient's initial encounter. Patient reports that signs and symptoms have been present for 1 day and indicates a pain score of Nonresponsive. MEDICAL/SURGICAL HISTORY: Non-responsive. Non-responsive. RADIATION DOSE: 56.35 CTDI (mGy) COMPARISON: No prior exams available for comparison. TECHNIQUE: CT of the head without contrast. Using automated exposure control and adjustment of the mA and/or kV according to patient size, radiation dose was kept as low as reasonably achievable to ob tain optimal diagnostic quality images. DICOM format image data is available electronically for revi ew and comparison. FINDINGS: Cerebrum: The ventricles are normal for age. No evidence of midline shift, mass lesion, hemorrhage or acute infarction. No extraaxial fluid collections are seen. Posterior Fossa: The cerebellum and brainstem are intact. The 4th ventricle is midline. The cerebe llopontine angle is unremarkable. Extracranial: The visualized portion of the orbits is intact. Small amount of fluid in left maxillar y sinus Skull: The calvaria is intact. No evidence of skull fracture. CONCLUSION: 1. No acute intracranial abnormalities. Left maxillary sinus disease. Electronically signed by: Iglesia Alfonso MD 03/18/2018 1:30 AM EDT
[2018-03-18 01:37] LABS: Alkaline Phosphatase 98 U/L (45-117); Total Protein 8.4 g/dL (6.4-8.2)
--- NOTE | 2018-03-18 01:56 | XR ---
EXAM DATE: 03/18/2018 1:09 AM EDT AGE/SEX: 57 years / Female INDICATIONS: . Shortness of breath status post possible overdose. CLINICAL DATA: This is the patient's initial encounter. Patient reports that signs and symptoms have been present for 1 day and indicates a pain score of Nonresponsive. MEDICAL/SURGICAL HISTORY: Non-responsive. Non-responsive. COMPARISON: No prior exams available for comparison. FINDINGS: A single AP view of the chest demonstrates the lungs to be symmetrically aerated without evidence of mass, infiltrate or effusion. Minimal basilar atelectasis or scarring suspected on the left side. The cardiomediastinal contours are unremarkable. Osseous structures are intact. CONCLUSION: Minimal left basilar atelectasis or scarring. No effusion or pneumothorax. Electronically signed by: Iglesia Alfonso MD 03/18/2018 1:54 AM EDT
[2018-03-18 02:09] LABS: Alanine Aminotransferase 25 U/L (10-53); Albumin 3.7 g/dL (3.4-5.0); Anion Gap 11 meq/L (5-15); Aspartate Aminotransferase 31 U/L (15-37); Blood Urea Nitrogen 6 mg/dL (7-18); Calcium 8.4 mg/dL (8.5-10.1); Carbon Dioxide 22.1 meq/L (21.0-32.0); Chloride 104 meq/L (98-107); Glomerular Filtration Rate 61 mL/min (>89); Glucose,Random 214 mg/dL (74-106); Lipase 50 U/L (73-393); Sodium 137 meq/L (136-145)
[2018-03-18 02:10] LABS: Potassium 4.2 meq/L (3.5-5.1)
[2018-03-18] MEDS ORDERED: Vancomycin Inj 1 GM/200 ML PIGGYBACK IV.SIG ONE (03:30)
[2018-03-18] MEDS ORDERED: Bisacodyl 10 MG Supp RECTAL PRN (07:01)
[2018-03-18] MEDS ORDERED: Magnesium Sulfate Inj 2 GM in Sodium Chlor 0.9% Inj 96 ML IV.SIG PRN (07:06)
[2018-03-18] MEDS ORDERED: Potassium Chlor 40 mEq Premix 40 MEQ/100 ML PIGGYBACK IV.SIG PRN ×2 (07:06)
[2018-03-18] MEDS ORDERED: Potassium Phosphate Inj 30 MMOL in Sodium Chlor 0.9% Inj 250 ML IV.SIG PRN (07:06)
[2018-03-18] MEDS ORDERED: Sodium Phosphate Inj 30 MMOL in Sodium Chlor 0.9% Inj 250 ML IV.SIG PRN (07:06)
[2018-03-18] MEDS ORDERED: Magnesium Oxide 400 MG Tablet PO PRN (07:06)
[2018-03-18] MEDS ORDERED: Potassium Phosphate 500 MG Soluble Tablet PO PRN ×2 (07:06)
[2018-03-18] MEDS ORDERED: Magnesium Sulfate Inj 4 GM in Sodium Chlor 0.9% Inj 92 ML IV.SIG PRN (07:06)
[2018-03-18] MEDS ORDERED: Potassium Chloride 25 MEQ Effervescent Tablet PO PRN (07:06)
[2018-03-18] MEDS ORDERED: Potassium Chlor 20 mEq Premix 20 MEQ/100 ML PIGGYBACK IV.SIG PRN ×2 (07:06)
--- NOTE | 2018-03-18 07:58 | P.HPCC ---
History of Present Illness Service: Critical Care Medicine Primary Care Physician: No Primary Care Physician Chief Complaint: altered mental status History of Present Illness: This is a 57-year-old female who was brought in by EMS from her hotel room for acute altered mental status and likely overdose. Per the ER report, patient was found unresponsive in her hotel room. Initial patient's GCS was 3. She was given 2 mill grams of Narcan IM with improvement into her GCS to 9. She was started on a Narcan drip in the emergency department and her mental status continued to improve. Patient has a history of heroin abuse and alcohol abuse. When I evaluated the patient she is moaning. She is awake and checking her airway, but will not provide any additional information to me. She will not answer my questions or follow commands. Review systems is unobtainable. She remains on a Narcan infusion. Inpatient Certification: I certify that the inpatient services were ordered in accordance with Medicare regulations governing the order. This includes certification that hospital inpatient services are reasonable and necessary and in the case of services not specified as inpatient-only under 42 CFR 419.22(n), that they are appropriately provided as inpatient services in accordance to with the 2-midnight benchmark under 43 CFR 412.3(e) Estimated Total Length of Stay (Days): 4 Plans for Post Hospital Care: Not yet determined Review of Systems unobtainable due to mental condition PMFSH - History History Provided By: Medical Record - Medical / Surgical Hx Neg / Unobtainable Medical Problems Denied: Unable to Obtain Surgical History: Unable to Obtain - Medical History Medical History: Medical History (Last Reviewed 03/18/18 @ 00:53 by Janeth Jarvis MD) Medical history unknown Surgical history unknown - Tobacco History Smoking Status: Unknown if ever smoked - Alcohol History How Often Do You Have a Drink Containing Alcohol: Unable to Obtain - Substance Use Type Benzodiazepines Status: Active Heroin Status: Active - Travel History Recent Travel in the [place] Within the Last 8 Weeks: No Recent Travel Out of the Country Within the Last 8 Weeks: No - Immunization History Tetanus Immunization: Unable to Assess Hx Influenza Vaccine This Season: Unable to Assess Medications and Allergies Active Medications: Active Medications Al Hydroxide/Mg Hydroxide (Milk Of Magnjosh Liq) 30 ml PO Q12H PRN PRN Reason: Mild Constipation Albuterol (Duoneb Neb (Prn)) 1 ampul NEB Q2HR NEB PRN PRN Reason: WHEEZING Bisacodyl (Dulcolax Supp) 10 mg RECTAL DAILY PRN PRN Reason: SEVERE CONSITIPATION Chlorhexidine Gluconate (Chlorhexidine 2% Cloth) 3 pack TOPICAL DAILY@0400 MAURIZIO Stop: 03/24/18 03:59 Chlorhexidine Gluconate (Chlorhexidine 2% Cloth) 3 pack TOPICAL DAILY@0400 PRN PRN Reason: Extra cloth needed Stop: 03/24/18 03:59 Famotidine (Pepcid Pf Inj) 20 mg IV.PUSH Q12HR MAURIZIO Naloxone HCl 4 mg/ Dextrose 250 mls @ 12.5 mls/hr IV.CONT TITRATE PRN; Protocol PRN Reason: Ordered RASS Last Titration: 03/18/18 07:33 Dose: 0.2 mg/hr, 12.5 mls/hr Potassium Chloride/Sodium Chloride (Ns + Kcl 20 Meq Inj) 1,000 mls @ 100 mls/ hr IV.CONT .Q10H MAURIZIO Magnesium Sulfate Inj 4 gm/ (Sodium Chloride) 100 mls @ 50 mls/hr IV.SIG UNSCH PRN PRN Reason: For Magnesium 0.9 - 1.1 mg/dL Magnesium Sulfate Inj 2 gm/ (Sodium Chloride) 100 mls @ 50 mls/hr IV.SIG UNSCH PRN PRN Reason: For Magnesium 1.2 - 1.6 mg/dL Potassium Chloride (Kcl 40 Meq Premix Inj) 40 meq in 100 mls @ 25 mls/hr IV.SIG Q2H PRN PRN Reason: For Potassium 2.8 - 3.2 mEq/L Potassium Chloride (Kcl 20 Meq Premix Inj) 20 meq in 100 mls @ 50 mls/hr IV.SIG Q2H PRN PRN Reason: For Potassium 3.3 - 3.5 mEq/L Potassium Chloride (Kcl 40 Meq Premix Inj) 40 meq in 100 mls @ 25 mls/hr IV.SIG UNSCH PRN PRN Reason: For Potassium 3.3 - 3.5 mEq/L Potassium Chloride (Kcl 20 Meq Premix Inj) 20 meq in 100 mls @ 50 mls/hr IV.SIG Q2H PRN PRN Reason: For Potassium 2.8 - 3.2 mEq/L Potassium Phosphate 30 mmol/ (Sodium Chloride) 260 mls @ 42 mls/hr IV.SIG UNSCH PRN PRN Reason: SEE LABEL COMMENTS Sodium Phosphate 30 mmol/ (Sodium Chloride) 260 mls @ 42 mls/hr IV.SIG UNSCH PRN PRN Reason: For Phosphorus < 2.5 mg/dL Lactulose (Lactulose Liq) 30 ml PO DAILY PRN PRN Reason: SEVERE CONSITIPATION Magnesium Oxide (Mag-Ox) 800 mg PO UNSCH PRN PRN Reason: For Magnesium 1.2 - 1.6 mg/dL Potassium Bicarb/Potassium Chloride (K-Lyte Cl Eff) 50 meq PO UNSCH PRN PRN Reason: For Potassium 3.3 - 3.5 mEq/L Potassium Phosphate (K-Phos Original) 2,000 mg PO Q4H PRN PRN Reason: Phosphorus Less Than 2.5 mg/dL Potassium Phosphate (K-Phos Original) 2,000 mg PO UNSCH PRN PRN Reason: SEE LABEL COMMENTS Senna/Docusate Sodium (Meaghan-Colace) 1 tab PO BID MAURIZIO Sennosides (Senokot) 17.2 mg PO Q12H PRN PRN Reason: Moderate Constipation Sodium Chloride (Ns Flush) 2 ml IV.FLUSH BID MAURIZIO Sodium Chloride (Ns Flush) 2 ml IV.FLUSH PRN PRN PRN Reason: FLUSH AFTER USING IV ACCESS Allergies Allergy/AdvReac Type Severity Reaction Status Date / Time penicillin G Allergy Mild CHILDHOOD Unverified 04/15/17 15:22 REACTION ziprasidone Allergy Mild SOB Unverified 04/15/17 15:22 MYCINS Allergy Mild Nausea/Vomi Uncoded 04/02/07 11:29 ting Home Medications Medication Instructions Recorded Confirmed Type Unable to Obtain Home Meds 03/18/18 03/18/18 History Results - Labs CBC & Chem 7: 03/18/18 00:50 03/18/18 00:50 Labs: Short CBC 03/18/18 Range/Units 00:50 WBC 9.1 (4.0-11.0) th/mm3 Hgb 12.8 (11.6-15.3) gm/dL Hct 39.3 (35.0-46.0) % Plt Count 292 (150-450) th/mm3 [facility] 03/18/18 00:50 Sodium 137 Potassium 4.2 Chloride 104 Carbon Dioxide 22.1 BUN 6 L Creatinine 0.94 Calcium 8.4 L Cardiac Enzymes 03/18/18 Range/Units 00:50 Troponin I Less than 0.02 L (0.02-0.05) ng/mL Liver Function 03/18/18 Range/Units 00:50 Total Bilirubin 0.8 (0.2-1.0) mg/dL AST 31 (15-37) U/L ALT 25 (10-53) U/L Alkaline Phosphatase 98 (45-117) U/L Albumin 3.7 (3.4-5.0) g/dL Urine 03/18/18 Range/Units 00:50 Urine Color Straw (Yellw/Straw) Urine Clarity Clear (Clear) Urine pH 6.0 (5.0-8.5) Ur Specific [place]ley 1.003 (1.002-1.035) Urine Protein 30 H (Neg-Trace) mg/dL Urine Glucose (UA) 500 or greater (Negative) mg/dL - Imaging Impressions Chest X-Ray 03/18/18 00:33 CONCLUSION: Minimal left basilar atelectasis or scarring. No effusion or pneumothorax. Head CT 03/18/18 00:33 CONCLUSION: 1. No acute intracranial abnormalities. Left maxillary sinus disease. Exam Vital signs: Vital Signs 03/18/18 00:29 03/18/18 00:40 03/18/18 00:47 Temperature 36.5 C Pulse Rate 103 H 100 H Respiratory Rate 12 12 Blood Pressure 172/122 H 123/97 H Pulse Oximetry 95 92 L 96 03/18/18 00:49 03/18/18 01:37 03/18/18 03:38 Temperature Pulse Rate 93 H Respiratory Rate 18 Blood Pressure 116/75 Pulse Oximetry 95 98 94 L 03/18/18 05:02 03/18/18 06:52 03/18/18 07:08 Temperature Pulse Rate 88 119 H 114 H Respiratory Rate 16 18 18 Blood Pressure 119/68 100/56 L 150/80 H Pulse Oximetry 95 93 L 94 L Intake & Output 03/17/18 03/18/18 03/18/18 18:59 06:59 18:59 Intake Total 1100 / 1100 Balance 1100 / 1100 Weight 81.647 kg Intake: IV 1100 / 1100 Flagyl 500 MG Inj 100 ML @ 100 100 / 100 mls/hr IV.SIG ONCE ONE Rx#: [id number] Narrative: GENERAL: Middle-aged female that appears much older than stated age, lying in bed, nasal cannula, moaning, no acute distress HEENT: Normocephalic. Atraumatic. Pupils pinpoint, round, reactive, conjugate. Mucous membranes are moist NECK: Trachea is midline. There is no JVD. CHEST: Nasal cannula oxygen. Airway widely patent. Equal chest rise. Unlabored. CARDIOVASCULAR: Normal rate, regular rhythm. Sinus. ABDOMEN: Soft, nontender, nondistended. No guarding. MUSCULOSKELETAL: Pulses 2+. No peripheral edema. NEUROLOGICAL: RASS -2. Arouses to voice. Volitionally will not follow commands , but moves all extremities spontaneously and briskly purposeful. Caprini VTE Risk Assessment Caprini VTE Risk Assessment: Moderate/High Risk (score >= 2) Caprini Risk Assessment Model: Point Value = 1 Point Value = 2 Point Value = 3 Point Value = 5 Age 41-60 Minor surgery BMI > 25 kg/m2 Swollen legs Varicose veins or History of unexplained or recurrent spontaneous Oral contraceptives or hormone replacement Sepsis (< 1 month) Serious lung disease, including pneumonia (< 1 month) Abnormal pulmonary function Acute myocardial infarction Congestive heart failure (< 1 month) History of inflammatory bowel disease Medical patient at bed rest Age 61-74 Arthroscopic surgery Major open surgery (> 45 min) Laparoscopic surgery (> 45 min) Malignancy Confined to bed (> 72 hours) Immobilizing plaster cast Central venous access Age >= 75 History of VTE Family history of VTE Factor V Leiden Prothrombin [id number] Lupus anticoagulant Anticardiolipin antibodies Elevated serum homocysteine Heparin-induced thrombocytopenia Other congenital or acquired thrombophilia Stroke (< 1 month) Elective arthroplasty Hip, pelvis, or leg fracture Acute spinal cord injury (< 1 month) Prophylaxis Regimen: Total Risk Factor Score Risk Level Prophylaxis Regimen 0-1 Low Early ambulation 2 Moderate Order ONE of the following: *Sequential Compression Device (SCD) *Heparin 5000 units SQ BID 3-4 Higher Order ONE of the following medications: *Heparin 5000 units SQ TID *Enoxaparin/Lovenox 40 mg SQ daily (WT < 150 kg, CrCl > 30 mL/min) *Enoxaparin/Lovenox 30 mg SQ daily (WT < 150 kg, CrCl > 10-29 mL/min) *Enoxaparin/Lovenox 30 mg SQ BID (WT < 150 kg, CrCl > 30 mL/min) AND/OR *Sequential Compression Device (SCD) 5 or more Highest Order ONE of the following medications: *Heparin 5000 units SQ TID (Preferred with Epidurals) *Enoxaparin/Lovenox 40 mg SQ daily (WT < 150 kg, CrCl > 30 mL/min) *Enoxaparin/Lovenox 30 mg SQ daily (WT < 150 kg, CrCl > 10-29 mL/min) *Enoxaparin/Lovenox 30 mg SQ BID (WT < 150 kg, CrCl > 30 mL/min) AND *Sequential Compression Device (SCD) Assessment and Plan - Assessment and Plan Plan: Assessment: 57-year-old female with toxic encephalopathy secondary to opiate overdose on Narcan infusion. Admit ICU. Wean from naloxone infusion as tolerated. Active problems: Toxic encephalopathy Opiate overdose Acute hypercarbic respiratory failure secondary to opiate overdose Opiate dependence Substance abuse Plan: Narcan infusion, wean as tolerated Wean nasal cannula for goal SPO2 greater than 90% Watch for substance withdrawal symptoms No indication for Malone catheter at this time, will remove Admit to ICU Advance diet after mental status improves Frequent neurochecks Avoid long-acting sedatives SCDs, Lovenox Transfer to hospitalist service and likely transfer out of ICU when encephalopathy resolves.
[2018-03-18] MEDS: Enoxaparin Inj 40 MG/0.4 ML Syringe SQ SCH (09:12)
[2018-03-18] MEDS: Famotidine PF Inj 20 MG/2 ML Vial IV.PUSH SCH ×2 (09:55→22:33)
[2018-03-18] MEDS: Senna/Docusate Sodium 8.6/50 MG Tablet PO SCH ×2 (12:22→22:34)
--- NOTE | 2018-03-18 14:47 | ECG ---
Date Performed: 03/18/2018 Time Performed: 00:34:15 PTAGE: 57 years EKG: Sinus rhythm WITH SHORT ND INTERVAL (NO DELTA WAVE, NOT ECTOPIC) NONSPECIFIC T-WAVE ABNORMALITY BORDERLINE ECG NO PREVIOUS TRACING DOCTOR: Josr Daniel Interpretating Date/Time 03/18/2018 14:47:20
[2018-03-18] MEDS ORDERED: Naloxone Inj 0.4 MG/ML Vial IV.PUSH PRN (20:30)
[2018-03-19] MEDS ORDERED: Chlorhexidine Gluconate 2% 1 Pack (2 Cloths) TOPICAL SCH (04:00)
[2018-03-19] MEDS ORDERED: Chlorhexidine Gluconate 2% 1 Pack (2 Cloths) TOPICAL PRN (04:00)
[2018-03-19 06:59] LABS: Baso % (Auto) 0.5 % (0.0-2.0); Eos # (Auto) 0.4 th/mm3 (0.0-0.4); Eos % (Auto) 6.8 % (0.0-4.0); Hematocrit 30.2 % (35.0-46.0); Lymph # (Auto) 2.3 th/mm3 (1.0-4.8); Lymph % (Auto) 35.5 % (9.0-44.0); Mean Corpuscular HGB Conc 33.3 % (32.0-36.0); Mean Corpuscular Hemoglobin 29.6 pg (27.0-34.0); Mean Corpuscular Volume 88.9 fL (80.0-100.0); Mono # (Auto) 0.5 th/mm3 (0.0-0.9); Mono % (Auto) 7.7 % (0.0-8.0); Neut # (Auto) 3.2 th/mm3 (1.8-7.7); Neut % (Auto) 49.5 % (16.0-70.0); Platelet Count 292 th/mm3 (150-450); Red Cell Distribution Width 15.3 % (11.6-17.2); White Blood Count 6.5 th/mm3 (4.0-11.0)
[2018-03-19 07:17] LABS: Alanine Aminotransferase 17 U/L (10-53); Albumin 2.9 g/dL (3.4-5.0); Alkaline Phosphatase 75 U/L (45-117); Anion Gap 10 meq/L (5-15); Aspartate Aminotransferase 16 U/L (15-37); Blood Urea Nitrogen 7 mg/dL (7-18); Calcium 8.4 mg/dL (8.5-10.1); Chloride 107 meq/L (98-107); Glomerular Filtration Rate Greater Than 89 mL/min (>89); Glucose,Random 78 mg/dL (74-106); Magnesium 2.1 mg/dL (1.5-2.5); Potassium 3.8 meq/L (3.5-5.1); Sodium 141 meq/L (136-145); Total Protein 6.5 g/dL (6.4-8.2)
--- NOTE | 2018-03-19 08:43 | P.PNIM ---
Subjective Interval history: Patient seen, sleeping but easily arousable. Groggy, oriented 3. No chest pain, no shortness of breath. Sitter in place. Denied any suicidal ideations. Physical Exam Vital signs: Vital Signs 03/18/18 09:30 03/18/18 10:45 03/18/18 12:00 Temperature 98.6 F Pulse Rate 102 H 96 H 94 H Respiratory Rate 14 8 L Blood Pressure 132/82 112/64 Pulse Oximetry 95 97 03/18/18 16:00 03/18/18 20:00 03/19/18 00:00 Temperature 99.4 F 99.9 F H 99.4 F Pulse Rate 91 H 82 102 H Respiratory Rate 10 L 18 18 Blood Pressure 108/97 H 104/72 99/58 L Pulse Oximetry 100 94 L 03/19/18 04:00 Temperature 98.6 F Pulse Rate 82 Respiratory Rate 18 Blood Pressure 121/63 Pulse Oximetry 95 Intake & Output 03/18/18 03/19/18 03/19/18 18:59 06:59 18:59 Intake Total 1000 / 1000 Output Total 0 / 0 0 / 0 Balance 1000 / 1000 0 / 0 Weight 65.8 kg Intake: IV 1000 / 1000 NS + KCl 20 mEq Inj 1,000 ML @ 1000 / 1000 100 mls/hr IV.CONT .Q10H [facility] Rx #:[id number] Output: Urine 0 / 0 0 / 0 Other: # Voids 0 0 # Bowel Movements 0 0 Narrative: GENERAL: Middle-aged female that appears much older than stated age, not in distress. HEENT: Normocephalic. Atraumatic. Pupils equal reactive to light. CHEST: Clear breath sounds CARDIOVASCULAR: Normal rate, regular rhythm. Sinus. ABDOMEN: Soft, nontender, nondistended. No guarding. MUSCULOSKELETAL: Pulses 2+. No peripheral edema. NEUROLOGICAL: Sleeping, easily arousable, oriented to. Also oriented to time but took a while. No focal deficit Denied any suicidal ideations. - Urinary Catheter Management Indwelling Urethral Catheter Cath placed during this visit: yes Reason for continuing: Hourly intake/output Insertion date: 03/18/18 Insertion time: 05:35 Results - Labs CBC & Chem 7: 03/19/18 05:50 03/19/18 05:50 Laboratory Results - last 24 hr 03/18/18 03/19/18 03/19/18 10:45 05:50 05:50 WBC 6.5 RBC 3.40 L Hgb 10.0 L D Hct 30.2 L MCV 88.9 MCH 29.6 MCHC 33.3 RDW 15.3 Plt Count 292 MPV 8.0 Neut % (Auto) 49.5 Lymph % (Auto) 35.5 [place] % (Auto) 7.7 Eos % (Auto) 6.8 H Baso % (Auto) 0.5 Neut # (Auto) 3.2 Lymph # (Auto) 2.3 [place] # (Auto) 0.5 Eos # (Auto) 0.4 Baso # (Auto) 0.0 WBC Differential . Differential Comment Auto diff final Sodium 141 Potassium 3.8 Chloride 107 Carbon Dioxide 24.0 Anion Gap 10 BUN 7 Creatinine 0.52 Estimated GFR Greater than 89 Random Glucose 78 D Calcium 8.4 L Magnesium 2.1 Total Bilirubin 0.7 AST 16 ALT 17 Alkaline Phosphatase 75 Total Protein 6.5 D Albumin 2.9 L D Nasal Screen MRSA (PCR) Not detected Assessment and Plan - Plan 57-year-old female with toxic encephalopathy secondary to opiate overdose on Narcan infusion. Toxic encephalopathy Opiate overdose Acute hypercarbic respiratory failure secondary to opiate overdose Opiate dependence Substance abuse -Weaned from Narcan, continue oxygen support, watch out for withdrawal. Mental status is better. No suicidal ideations. Start physical therapy. SCDs, Lovenox Possible discharge tomorrow.
[2018-03-19] MEDS: Famotidine PF Inj 20 MG/2 ML Vial IV.PUSH SCH (10:07)
[2018-03-19] MEDS: Enoxaparin Inj 40 MG/0.4 ML Syringe SQ SCH (10:08)
[2018-03-19] MEDS: Senna/Docusate Sodium 8.6/50 MG Tablet PO SCH (10:09)
--- NOTE | 2018-03-19 20:16 | P.AMA ---
AMA Note - AMA Note AMA Statement: Patient Gladys Stuart has decided to leave the hospital against medical advice. This patient has the capacity to refuse care and understands the risks of leaving, including permanent disability and/or , and has had an opportunity to ask questions about his/her condition. The patient has been informed that he/she may return for care at any time, and follow up has been arranged/advised. - AMA Note Discharge Disposition: Left Against Medical Advice
== END 2018-03-19 21:23 | disposition left against medical advice (07) ==
LOC: NEPC 00:19 → NEDA 03:56 → N03 10:41 → N05 20:46
PROVIDERS: ADMIT Hospitalist; ATTEND Hospitalist

== ENCOUNTER 2018-09-02 09:56 | Inpatient (IN) ==
[2018-09-02 12:05] LABS: Baso # (Auto) 0.1 th/mm3 (0.0-0.2); Baso % (Auto) 0.8 % (0.0-2.0); Eos # (Auto) 0.3 th/mm3 (0.0-0.4); Hematocrit 35.7 % (35.0-46.0); Hemoglobin 12.7 gm/dL (11.6-15.3); Lymph # (Auto) 1.5 th/mm3 (1.0-4.8); Lymph % (Auto) 16.3 % (9.0-44.0); Mean Corpuscular HGB Conc 35.5 % (32.0-36.0); Mean Corpuscular Hemoglobin 30.9 pg (27.0-34.0); Mean Corpuscular Volume 87.2 fL (80.0-100.0); Mean Platelet Volume 7.6 fL (7.0-11.0); Mono # (Auto) 0.5 th/mm3 (0.0-0.9); Mono % (Auto) 5.6 % (0.0-8.0); Neut # (Auto) 6.9 th/mm3 (1.8-7.7); Neut % (Auto) 74.3 % (16.0-70.0); Platelet Count 421 th/mm3 (150-450); Red Blood Count 4.09 mil/mm3 (4.00-5.30); Red Cell Distribution Width 16.1 % (11.6-17.2); White Blood Count 9.2 th/mm3 (4.0-11.0)
[2018-09-02 12:29] LABS: Calcium 8.8 mg/dL (8.5-10.1); Carbon Dioxide 27.3 meq/L (21.0-32.0); Potassium 4.2 meq/L (3.5-5.1)
--- NOTE | 2018-09-02 13:01 | ED ---
HPI General Chief complaint: Skin/Abscess/Foreign Body Stated complaint: hip pain Time Seen by Provider: 09/02/18 11:16 Source: patient History of Present Illness HPI narrative: Patient is a 57-year-old female with a history of IV drug use, bipolar disorder, COPD, GERD, and depression. Patient was apparently at [facility] for detox and was sent in for evaluation of right hip abscess and left hip pain. Patient reports she started having redness in the right hip approximately a week ago with some red bumps. These developed into some abscesses one which opened spontaneously. She reports she was seen elsewhere and put on Bactrim 3 days ago. She has been taking the Bactrim but has developed additional abscesses to the right hip. One is also developing on the left hip. Patient complains of chills but no fever. She complains of some nausea which started today but no vomiting so far. Her other complaint is significant pain in her left knee and left hip. She reports that typically she uses a walker but now she is unable to even put weight on her left leg. Related Data Home Medications Medication Instructions Recorded Confirmed Lasix 09/02/18 Plavix 09/02/18 Previous Rx's Medication Instructions Recorded sulfamethoxazole-trimethoprim 1 tab PO Q12H #20 tab 07/07/18 [Bactrim DS] Allergies Allergy/AdvReac Type Severity Reaction Status Date / Time erythromycin base Allergy Intermediate Nausea/Vomi Verified 09/02/18 10:08 ting penicillin G Allergy Mild CHILDHOOD Verified 09/02/18 10:08 REACTION ziprasidone Allergy Mild SOB Verified 09/02/18 10:08 Review of Systems ROS: all other systems reviewed are negative [facility] Medical History Medical History Acid reflux (Chronic) Chronic pain (Chronic) Seizure (Chronic) Osteomyelitis hip (Resolved) Surgical History Surgical History S/P foot surgery, right (Chronic) S/P right knee arthroscopy (Chronic) H/O: hysterectomy (Chronic) History of hip surgery (Chronic) Social History Social History Substance History: No History of Abuse Second Hand Smoke Exposure: No Smoking Status: Current some day smoker Tobacco Type: Cigarettes How Often Do You Have a Drink Containing Alcohol: Monthly or less Recent Travel in [facility] within the Last 8 Weeks: No Recent Out of Country Travel within the Last 8 Weeks: No Immunization History Tetanus Immunization: Unsure Exam Narrative Exam Narrative: GENERAL: [-] SKIN: 4x4cm open wound with yellow exudate on left hip surrounded by erythema, second abscess approximately same size present. Entire hip erythematous. Indurated area approx. 2x2 on left hip. HEAD: Atraumatic. Normocephalic. EYES: Pupils equal and round. No scleral icterus. No injection or drainage. ENT: No nasal bleeding or discharge. Mucous membranes pink and moist. Edentulous NECK: Trachea midline. No JVD. CARDIOVASCULAR: Regular rate and rhythm. No murmur appreciated. RESPIRATORY: No accessory muscle use. Clear to auscultation. Breath sounds equal bilaterally. GASTROINTESTINAL: Abdomen soft, non-tender, nondistended. Hepatic and splenic margins not palpable. MUSCULOSKELETAL: significant pain with flexion of left knee, notable crepitus on flexion. NEUROLOGICAL: Awake and alert. No obvious cranial nerve deficits. Decreased MS 2-3/5 Normal speech. PSYCHIATRIC: Appropriate mood and affect; insight and judgment normal. Course Initial Documented Vital Signs Temperature 98.7 F 09/02/18 10:06 Pulse Rate 90 09/02/18 10:06 Respiratory Rate 18 09/02/18 10:06 Blood Pressure 154/90 H 09/02/18 10:06 Pulse Oximetry 97 09/02/18 10:06 Last Documented Vital Signs Temperature 98.9 F 09/02/18 14:43 Pulse Rate 88 09/02/18 17:28 Respiratory Rate 18 09/02/18 17:28 Blood Pressure 140/86 09/02/18 17:28 Pulse Oximetry 97 09/02/18 17:28 Medical Decision Making [facility] Narrative Medical decision making narrative: Patient is a 57-year-old female with a history of IV drug use who presented to the emergency room today with complaints of abscesses to the right hip which have failed to respond to treatment with Bactrim. She states the symptoms initially started about a week ago. She is been on Bactrim for 3 days and has seen no improvement. Additional abscesses have developed on the hip. She also has the beginning of an abscess developing on the left hip. CBC, lactic acid, BMP, blood cx, wound cx, CT right hip, xray left hip and knee ordered Clindaymcin [address] right hip shows no abscess but mutiple pathologically enlarged lymph nodes in the right groin. CBC shows mild left shift but no leukocytosis. Lactic acid WNL. Xray left knee shows osteopenia. Xray left hip shows adv.OA. Admitted to Dr. Becerra/hospitalist service. Medical Screen Exam Complete: Yes Emergency Medical Condition: Yes Differential Diagnosis Differential Diagnosis: Osteomyelitis/sepsis/ abscess Lab Data Result diagrams: 09/02/18 11:30 09/02/18 11:30 Lab Results 09/02/18 09/02/18 09/02/18 Range/Units 11:30 11:30 11:30 WBC 9.2 (4.0-11.0) th/mm3 RBC 4.09 (4.00-5.30) mil/mm3 Hgb 12.7 (11.6-15.3) gm/dL Hct 35.7 (35.0-46.0) % MCV 87.2 (80.0-100.0) fL MCH 30.9 (27.0-34.0) pg MCHC 35.5 (32.0-36.0) % RDW 16.1 (11.6-17.2) % Plt Count 421 (150-450) th/mm3 MPV 7.6 (7.0-11.0) fL Neut % (Auto) 74.3 H (16.0-70.0) % Lymph % (Auto) 16.3 (9.0-44.0) % [place] % (Auto) 5.6 (0.0-8.0) % Eos % (Auto) 3.0 (0.0-4.0) % Baso % (Auto) 0.8 (0.0-2.0) % Neut # (Auto) 6.9 (1.8-7.7) th/mm3 Lymph # (Auto) 1.5 (1.0-4.8) th/mm3 [place] # (Auto) 0.5 (0.0-0.9) th/mm3 Eos # (Auto) 0.3 (0.0-0.4) th/mm3 Baso # (Auto) 0.1 (0.0-0.2) th/mm3 WBC Differential . Differential Comment Auto diff final Sodium 135 L (136-145) meq/L Potassium 4.2 (3.5-5.1) meq/L Chloride 101 (98-107) meq/L Carbon Dioxide 27.3 (21.0-32.0) meq/L Anion Gap 7 (5-15) meq/L BUN 18 (7-18) mg/dL Creatinine 0.95 (0.50-1.00) mg/dL Estimated GFR 60 L (>89) mL/min Random Glucose 95 (74-106) mg/dL Lactic Acid 0.6 (0.4-2.0) mmol/L Calcium 8.8 (8.5-10.1) mg/dL Imaging Data Radiologist's impression: Hip CT 09/02/18 12:27 CONCLUSION: 1. No evidence for abscess. 2. Multiple pathologically enlarged lymph nodes in the right groin. 3. Extensive and far advanced osteoarthritis left hip. Hip X-Ray 09/02/18 13:06 CONCLUSION: Extensive and far advanced osteoarthritis left hip joint. Knee X-Ray 09/02/18 13:06 CONCLUSION: Osteopenia otherwise negative. There is no joint effusion Discharge Plan Discharge Disposition Patient Disposition: ED Admit(ED Internal Use Only) Discharge Condition Condition: Stable Discharge Order Discharge Orders: ED Use Only Admit Order (Routine); Ordered 09/02/18 Ordered By: Brigitte Ríos Discharge Details Diagnosis: Abscess Physicians Team ED Provider: Heather Akhtar ED Midlevel Provider: Brigitte Ríos Primary Care Provider: Primary Care Candace Amezcua Attending Provider: Jennyfer Becerra Status ED Status: Admitted Observation Patient
--- NOTE | 2018-09-02 13:55 | CT ---
EXAM DATE: 09/02/2018 1:41 PM EST AGE/SEX: 57 years / Female INDICATIONS: History of multiple abscess right hip and leg CLINICAL DATA: This is the patient's initial encounter. Patient reports that signs and symptoms have been present for 1 day and indicates a pain score of 7/10. MEDICAL/SURGICAL HISTORY: Seizures. Hysterectomy. RADIATION DOSE: 28.90 CTDI (mGy) COMPARISON: No prior exams available for comparison. TECHNIQUE: Multiple contiguous axial images were acquired using a multirow detector CT scanner withou t contrast and after intravenous administration of 98 ml Omnipaque 350 (iohexol) nonionic water-solu ble contrast as a single exam dose. Multiplanar reconstruction was performed in the sagittal and cor onal planes. Using automated exposure control and adjustment of the mA and/or kV according to patien t size, radiation dose was kept as low as reasonably achievable to obtain optimal diagnostic quality images. DICOM format image data is available electronically for review and comparison. FINDINGS: There are multiple lymph nodes in the right groin the largest one measures almost 1.6 cm in size. Mos t of them do not demonstrate fatty hilum. There is no abscess formation. There are no signs of osteom yelitis for technique Extensive and far advanced osteoarthritis is seen in the left hip joint. The r ight hip joint appears intact with minimal subarticular cystic formation involving the acetabulum. No definite fracture is identified for technique. CONCLUSION: 1. No evidence for abscess. 2. Multiple pathologically enlarged lymph nodes in the right groin. 3. Extensive and far advanced osteoarthritis left hip. Electronically signed by: Lukas Barrientos MD Board Certified Radiologist 09/02/2018 1:54 PM EST
--- NOTE | 2018-09-02 14:06 | XR ---
EXAM DATE: 09/02/2018 2:03 PM EST AGE/SEX: 57 years / Female INDICATIONS: Left hip pain, no known injury. CLINICAL DATA: This is the patient's initial encounter. Patient reports that signs and symptoms have been present for > 1 year and indicates a pain score of 10/10. MEDICAL/SURGICAL HISTORY: None. None. COMPARISON: No prior exams available for comparison. FINDINGS: Extensive and far advanced osteoarthritis is seen left hip joint with flattening of the fe moral head. No definite fracture is identified for technique. CONCLUSION: Extensive and far advanced osteoarthritis left hip joint. Electronically signed by: Lukas Barrientos MD Board Certified Radiologist 09/02/2018 2:05 PM EST
--- NOTE | 2018-09-02 14:07 | XR ---
EXAM DATE: 09/02/2018 2:04 PM EST AGE/SEX: 57 years / Female INDICATIONS: Left knee pain, no known injury. CLINICAL DATA: This is the patient's initial encounter. Patient reports that signs and symptoms have been present for > 1 year and indicates a pain score of 10/10. MEDICAL/SURGICAL HISTORY: None. None. COMPARISON: No prior exams available for comparison. FINDINGS: Bony structures are intact and in normal alignment. Joints are intact without dislocation or signifi cant arthropathy. Osseous density is normal. Soft tissues are unremarkable. No radiopaque foreign bodies seen. CONCLUSION: Osteopenia otherwise negative. There is no joint effusion Electronically signed by: Aly Julian MD Board Certified Radiologist 09/02/2018 2:05 PM EST
[2018-09-02] MEDS ORDERED: Acetaminophen 325 MG Tablet PO PRN ×2 (17:53→17:57)
[2018-09-02] MEDS ORDERED: Bisacodyl 10 MG Supp RECTAL PRN (17:53)
[2018-09-02] MEDS ORDERED: Vancomycin Consult Pharmacy OTHER PRN (17:57)
[2018-09-02] MEDS ORDERED: Ibuprofen 400 MG Tablet PO PRN (17:57)
[2018-09-02] MEDS ORDERED: Naloxone Inj 0.4 MG/ML Vial IV.PUSH PRN (17:57)
--- NOTE | 2018-09-02 18:04 | P.HPIM ---
History of Present Illness Primary Care Physician: No Primary Care Physician Chief Complaint: Bilateral hip infection and pain History of Present Illness: 57-year-old white female with a history of IV drug abuse, bipolar disorder, GERD who was sent here from [facility] secondary to worsening right hip pain along with increased redness and drainage from an open wound despite being on p.o. Bactrim for the past 3 days. Patient reports that she completed her detox. at [facility] and was on Sebutex and Ativan as needed for anxiety and stated that she will not be returning there when discharge from the hospital. She also admitted that she is currently homeless. She reports the redness and lesions started about a week ago and despite being on antibiotics for the past 3 days has worsened. She complains of intermittent chills or fever. She also reported development of a bump over the left hip over the past day. She did admit to injecting IV drugs both on her right and left hip area. Of note, patient had history of left hip osteomyelitis and was treated for the next 2-3 months history of IV antibiotics and had multiple surgeries over the left hip about 18 months ago. Review of Systems Constitutional: Reports as per HPI, Reports chills, Denies fatigue, Reports fever(s) and Denies headache(s) Eyes: Denies blurry vision, Denies change in vision and Denies eye pain Ears, Nose, Mouth, and Throat: Denies abnormal hearing, Denies headache(s), Denies mouth pain, Denies nasal congestion, Denies neck pain and Denies sore throat Cardiovascular: Denies chest pain, Denies pedal edema, Denies palpitations and Denies dyspnea Respiratory: Denies cough and Denies dyspnea Gastrointestinal: Denies abdominal pain, Denies constipation, Denies loose stools, Denies nausea and Denies vomiting Musculoskeletal: Denies back pain, Denies myalgias, Denies arthralgias, Denies neck pain and Denies numbness Skin/Breast: Reports as per HPI, Reports changing lesions, Reports new lesions, Reports erythema, Reports rash and Reports wounds (Right hip wound is described in HPI) Neurologic: Denies abnormal hearing, Denies headache(s), Denies focal weakness, Denies memory loss and Denies numbness Psychiatric: Reports as per HPI, Reports anxiety, Denies depression and Denies memory loss Endocrine: Denies cold intolerance, Denies heat intolerance and Denies palpitations Hematologic/Lymphatic: Denies easy bleeding and Denies easy bruising PMFSH History History Provided By: Patient Medical History Medical History Acid reflux (Chronic) Chronic pain (Chronic) Seizure (Chronic) Osteomyelitis hip (Resolved) Surgical History Surgical History S/P foot surgery, right (Chronic) S/P right knee arthroscopy (Chronic) H/O: hysterectomy (Chronic) History of hip surgery (Chronic) Family History Family History Father Lung cancer Social History Social History Substance History: No History of Abuse Second Hand Smoke Exposure: No Smoking Status: Current some day smoker Tobacco Type: Cigarettes How Often Do You Have a Drink Containing Alcohol: Monthly or less Recent Travel in [facility] within the Last 8 Weeks: No Recent Out of Country Travel within the Last 8 Weeks: No Immunization History Tetanus Immunization: Unsure Medications and Allergies Allergies Allergy/AdvReac Type Severity Reaction Status Date / Time erythromycin base Allergy Intermediate Nausea/Vomi Verified 09/02/18 10:08 ting penicillin G Allergy Mild CHILDHOOD Verified 09/02/18 10:08 REACTION ziprasidone Allergy Mild SOB Verified 09/02/18 10:08 Home Medications Medication Instructions Recorded Confirmed Type Lasix 09/02/18 History Plavix 09/02/18 History Active Medications: Active Medications Acetaminophen (Tylenol) 650 mg PO Q4H PRN PRN Reason: Temp > 100.4 Acetaminophen (Tylenol) 650 mg PO Q4H PRN PRN Reason: PAIN SCALE 1 TO 5 Al Hydroxide/Mg Hydroxide (Milk Of Magnesia Liq) 30 ml PO Q12H PRN PRN Reason: Mild Constipation Bisacodyl (Dulcolax Supp) 10 mg RECTAL DAILY PRN PRN Reason: SEVERE CONSITIPATION Clindamycin Phosphate 600 mg/ (Sodium Chloride) 104 mls @ 200 mls/hr IV.SIG NOW MAURIZIO Last Infusion: 09/02/18 17:56 Dose: Infused Cefepime HCl 1,000 mg/ Sodium (Chloride) 100 mls @ 200 mls/hr IV.SIG Q8H MAURIZIO Vancomycin HCl 1,000 mg/ (Sodium Chloride) 250 mls @ 250 mls/hr IV.SIG Q12H MAURIZIO Ibuprofen (Motrin) 400 mg PO Q4HR PRN PRN Reason: PAIN SCALE 6 TO 10 Ketorolac Tromethamine (Toradol Inj) 30 mg IV.PUSH Q6H PRN PRN Reason: BREAKTHROUGH PAIN Lactulose (Lactulose Liq) 30 ml PO DAILY PRN PRN Reason: SEVERE CONSITIPATION Lorazepam (Ativan) 0.5 mg PO Q8H PRN PRN Reason: ANXIETY Naloxone HCl (Narcan Inj) 0.4 mg IV.PUSH UNSCH PRN PRN Reason: SEE LABEL COMMENTS Ondansetron HCl (Zofran Inj) 4 mg IV.PUSH Q6H PRN PRN Reason: NAUSEA OR VOMITING Pharmacy Profile Note (Vancomycin Consult Pharmacy) 1 each OTHER UNSCH PRN PRN Reason: Pharmacy to dose Senna/Docusate Sodium (Meaghan-Colace) 1 tab PO BID [facility] Sennosides (Senokot) 17.2 mg PO Q12H PRN PRN Reason: Moderate Constipation Sodium Chloride (Ns Flush) 2 ml IV.FLUSH BID MAURIZIO Sodium Chloride (Ns Flush) 2 ml IV.FLUSH PRN PRN PRN Reason: FLUSH AFTER USING IV ACCESS Physical Exam Vital signs: Last Vital Signs Temp 98.9 F 09/02/18 14:43 Pulse 88 09/02/18 17:28 Resp 18 09/02/18 17:28 BP 140/86 09/02/18 17:28 Pulse Ox 97 09/02/18 17:28 Intake & Output 08/31/18 09/01/18 09/02/18 09/03/18 06:59 06:59 06:59 06:59 Intake Total 104 / 104 Balance 104 / 104 Weight 58.967 kg Narrative: GENERAL: Well-nourished well-developed female in in no acute distress laying in bed SKIN: Warm and dry. Examination of her right hip showed a area of large blister and open wound about 5 cm x 8 cm with fibrinous tissue with surrounding erythema with mild drainage, examination of left hip showed an area of 2 x 4 cm of elevation with mild redness, no fluctuance palpated. HEAD: Atraumatic. Normocephalic. EYES: Pupils equal and round. No scleral icterus. No injection or drainage. ENT: No nasal bleeding or discharge. Mucous membranes pink and moist. NECK: Trachea midline. No JVD. CARDIOVASCULAR: Regular rate and rhythm. RESPIRATORY: No accessory muscle use. Clear to auscultation. Breath sounds equal bilaterally. GASTROINTESTINAL: Abdomen soft, non-tender, nondistended. Normal active bowel sounds MUSCULOSKELETAL: Extremities without clubbing, cyanosis, or edema. No obvious deformities. NEUROLOGICAL: Awake and alert to person place time and situation. No obvious cranial nerve deficits. Motor grossly within normal limits. Five out of 5 muscle strength in the arms and legs. Normal speech. PSYCHIATRIC: Appropriate mood and affect; insight and judgment normal. Results Labs CBC & Chem 7: 09/02/18 11:30 09/02/18 11:[address] 09/02/18 12:27 CONCLUSION: 1. No evidence for abscess. 2. Multiple pathologically enlarged lymph nodes in the right groin. 3. Extensive and far advanced osteoarthritis left hip. Hip X-Ray 09/02/18 13:06 CONCLUSION: Extensive and far advanced osteoarthritis left hip joint. Knee X-Ray 09/02/18 13:06 CONCLUSION: Osteopenia otherwise negative. There is no joint effusion Caprini VTE Risk Assessment Caprini VTE Risk Assessment: Moderate/High Risk (score >= 2) Caprini Risk Assessment Model: Point Value = 1 Point Value = 2 Point Value = 3 Point Value = 5 Age 41-60 Minor surgery BMI > 25 kg/m2 Swollen legs Varicose veins or History of unexplained or recurrent spontaneous Oral contraceptives or hormone replacement Sepsis (< 1 month) Serious lung disease, including pneumonia (< 1 month) Abnormal pulmonary function Acute myocardial infarction Congestive heart failure (< 1 month) History of inflammatory bowel disease Medical patient at bed rest Age 61-74 Arthroscopic surgery Major open surgery (> 45 min) Laparoscopic surgery (> 45 min) Malignancy Confined to bed (> 72 hours) Immobilizing plaster cast Central venous access Age >= 75 History of VTE Family history of VTE Factor V Leiden Prothrombin [id number] Lupus anticoagulant Anticardiolipin antibodies Elevated serum homocysteine Heparin-induced thrombocytopenia Other congenital or acquired thrombophilia Stroke (< 1 month) Elective arthroplasty Hip, pelvis, or leg fracture Acute spinal cord injury (< 1 month) Prophylaxis Regimen: Total Risk Factor Score Risk Level Prophylaxis Regimen 0-1 Low Early ambulation 2 Moderate Order ONE of the following: *Sequential Compression Device (SCD) *Heparin 5000 units SQ BID 3-4 Higher Order ONE of the following medications: *Heparin 5000 units SQ TID *Enoxaparin/Lovenox 40 mg SQ daily (WT < 150 kg, CrCl > 30 mL/min) *Enoxaparin/Lovenox 30 mg SQ daily (WT < 150 kg, CrCl > 10-29 mL/min) *Enoxaparin/Lovenox 30 mg SQ BID (WT < 150 kg, CrCl > 30 mL/min) AND/OR *Sequential Compression Device (SCD) 5 or more Highest Order ONE of the following medications: *Heparin 5000 units SQ TID (Preferred with Epidurals) *Enoxaparin/Lovenox 40 mg SQ daily (WT < 150 kg, CrCl > 30 mL/min) *Enoxaparin/Lovenox 30 mg SQ daily (WT < 150 kg, CrCl > 10-29 mL/min) *Enoxaparin/Lovenox 30 mg SQ BID (WT < 150 kg, CrCl > 30 mL/min) AND *Sequential Compression Device (SCD) Assessment and Plan Plan 57-year-old white female complete her detox recently for IV drug use presents with infected right hip wound and early development of left hip cellulitis with failed outpatient treatment with p.o. Bactrim Infected right hip wound with cellulitis with early development left hip cellulitisCT did not reveal any underlying abscess. Patient was given IV clindamycin, will initiate cefepime and vancomycin. With final wound culture and blood cultures. Start Santyl to the right hip until evaluated by wound care service. If wound or blisters does not improve will consider orthopedic surgery for further evaluation for I&D. History of IV drug use, patient counseled and states that she completed her detox at [facility]. Avoid narcotics for pain. History of anxiety with a previous history of seizure disorder questionable benzo withdrawal-Ativan as needed. GERDstart PPI. DVT prophylaxisheparin
[2018-09-02] MEDS: LORazepam 0.5 MG Tablet PO PRN (19:50)
[2018-09-02] MEDS ORDERED: Vancomycin Inj 1,000 MG in Sodium Chlor 0.9% Inj 250 ML IV.SIG SCH (20:00)
[2018-09-02] MEDS: Ketorolac Inj 30 MG/ML (IVP) Vial IV.PUSH PRN (20:46)
[2018-09-03] MEDS: Heparin - SQ 10,000 UNITS/ML Vial SQ SCH ×3 (00:51→20:21)
[2018-09-03] MEDS: Senna/Docusate Sodium 8.6/50 MG Tablet PO SCH ×3 (00:52→20:21)
[2018-09-03] MEDS: Ketorolac Inj 30 MG/ML (IVP) Vial IV.PUSH PRN ×3 (06:17→21:00)
[2018-09-03] MEDS: LORazepam 0.5 MG Tablet PO PRN ×3 (06:18→23:53)
[2018-09-03 07:42] LABS: Calcium 8.3 mg/dL (8.5-10.1); Carbon Dioxide 21.9 meq/L (21.0-32.0); Potassium 4.7 meq/L (3.5-5.1)
[2018-09-03] MEDS ORDERED: Pantoprazole Sodium 20 MG DR Tablet PO SCH (09:00)
[2018-09-03] MEDS: Collagenase Oint 30 GM Tube TOPICAL SCH ×2 (09:26)
[2018-09-03 10:22] LABS: Baso # (Auto) 0.1 th/mm3 (0.0-0.2); Baso % (Auto) 1.1 % (0.0-2.0); Eos # (Auto) 0.5 th/mm3 (0.0-0.4); Eos % (Auto) 7.4 % (0.0-4.0); Hematocrit 35.5 % (35.0-46.0); Hemoglobin 11.6 gm/dL (11.6-15.3); Lymph # (Auto) 1.6 th/mm3 (1.0-4.8); Lymph % (Auto) 22.6 % (9.0-44.0); Mean Corpuscular HGB Conc 32.8 % (32.0-36.0); Mean Corpuscular Hemoglobin 28.9 pg (27.0-34.0); Mean Corpuscular Volume 88.1 fL (80.0-100.0); Mono # (Auto) 0.7 th/mm3 (0.0-0.9); Mono % (Auto) 10.2 % (0.0-8.0); Neut # (Auto) 4.2 th/mm3 (1.8-7.7); Neut % (Auto) 58.7 % (16.0-70.0); Platelet Count 416 th/mm3 (150-450); Red Blood Count 4.03 mil/mm3 (4.00-5.30); Red Cell Distribution Width 16.1 % (11.6-17.2); White Blood Count 7.1 th/mm3 (4.0-11.0)
[2018-09-03] MEDS ORDERED: Aluminum/Magnesium/Simethacone Susp 30 ML UDC PO PRN (11:39)
--- NOTE | 2018-09-03 11:39 | P.PNIM ---
Subjective Interval history: Pain persist but not as bad. No fevers or chills. Ambulating with a walker. Tolerating diet. Patient complained of heartburn, wants Zantac. Physical Exam Vital signs: Last Vital Signs Temp 98.1 F 09/03/18 07:43 Pulse 67 09/03/18 07:43 Resp 17 09/03/18 07:43 BP 95/57 L 09/03/18 07:43 Pulse Ox 94 L 09/03/18 07:43 Intake & Output 09/01/18 09/02/18 09/03/18 09/04/18 06:59 06:59 06:59 06:59 Intake Total 774 / 774 580 / 580 Balance 774 / 774 580 / 580 Weight 58.967 kg Narrative: GENERAL: Well-nourished well-developed female in in no acute distress laying in bed SKIN: Warm and dry. Examination of her right hip showed large blister is breaking open and open wound about 5 cm x 8 cm with fibrinous tissue with surrounding erythema with mild drainage, overall redness has decreased over area ; examination of left hip showed less redness, no fluctuance palpated. CARDIOVASCULAR: Regular rate and rhythm. RESPIRATORY: No accessory muscle use. Clear to auscultation. Breath sounds equal bilaterally. GASTROINTESTINAL: Abdomen soft, non-tender, nondistended. Normal active bowel sounds MUSCULOSKELETAL: Extremities without clubbing, cyanosis, or edema. No obvious deformities. NEUROLOGICAL: Awake and alert to person place time and situation. Results Labs CBC & Chem 7: 09/03/18 08:21 09/03/18 06:30 Labs: Microbiology 09/02/18 17:19 Abscess - Hip Gram Stain - Final 09/02/18 11:30 Blood - Peripheral Aerobic Blood Culture - Preliminary No growth in 1 day 09/02/18 11:30 Blood - Peripheral Anaerobic Blood Culture - Preliminary No growth in 1 day 09/02/18 11:35 Blood - Peripheral Aerobic Blood Culture - Preliminary No growth in 1 day 09/02/18 11:35 Blood - Peripheral Anaerobic Blood Culture - Preliminary No growth in 1 day Imaging Imaging: Impressions Hip CT 09/02/18 12:27 CONCLUSION: 1. No evidence for abscess. 2. Multiple pathologically enlarged lymph nodes in the right groin. 3. Extensive and far advanced osteoarthritis left hip. Hip X-Ray 09/02/18 13:06 CONCLUSION: Extensive and far advanced osteoarthritis left hip joint. Knee X-Ray 09/02/18 13:06 CONCLUSION: Osteopenia otherwise negative. There is no joint effusion Assessment and Plan Plan 57-year-old white female complete her detox recently for IV drug use presents with infected right hip wound and early development of left hip cellulitis with failed outpatient treatment with p.o. Bactrim Infected right hip wound with cellulitis with early development left hip cellulitisCT did not reveal any underlying abscess. Patient was given IV clindamycin in ED, has clinically improved on cefepime and vancomycin. Follow- up with final wound culture and blood cultures. Start Santyl to the right hip wound until evaluated by wound care service. History of IV drug use, patient counseled and states that she completed her detox at [facility]. Avoid narcotics for pain. History of anxiety with a previous history of seizure disorder questionable benzo withdrawal-Ativan as needed. GERDchange PPI to H2 ge DVT prophylaxisheparin Discharged home in the next 24-48 hours pending final culture results. Progress Note: Quality VTE Deep Vein Thrombosis/Pulmonary Embolism Present on Admission: No
[2018-09-03] MEDS: Famotidine 20 MG Tablet PO SCH ×2 (12:44→20:21)
[2018-09-03] MEDS: Vancomycin Inj 1,000 MG in Sodium Chlor 0.9% Inj 250 ML IV.SIG SCH (17:23)
[2018-09-04] MEDS: Ketorolac Inj 30 MG/ML (IVP) Vial IV.PUSH PRN ×4 (04:28→23:35)
[2018-09-04] MEDS: Senna/Docusate Sodium 8.6/50 MG Tablet PO SCH ×2 (09:45→22:36)
[2018-09-04] MEDS: Heparin - SQ 10,000 UNITS/ML Vial SQ SCH ×2 (09:45→22:36)
[2018-09-04] MEDS: Famotidine 20 MG Tablet PO SCH ×2 (10:39→22:36)
[2018-09-04] MEDS: LORazepam 0.5 MG Tablet PO PRN ×2 (11:10→18:49)
[2018-09-04] MEDS: Vancomycin Inj 1,000 MG in Sodium Chlor 0.9% Inj 250 ML IV.SIG SCH (11:17)
--- NOTE | 2018-09-04 11:33 | P.PNIM ---
Subjective Interval history: reports she is feeling better. Pain improved. No compliants of fever or chills. Reports she is homeless and lives in a tent. Physical Exam Vital signs: Last Vital Signs Temp 97.2 F L 09/04/18 08:00 Pulse 68 09/04/18 08:00 Resp 18 09/04/18 08:00 BP 108/57 L 09/04/18 08:00 Pulse Ox 96 09/04/18 08:00 Intake & Output 09/02/18 09/03/18 09/04/18 09/05/18 06:59 06:59 06:59 06:59 Intake Total 774 / 774 1890 / 1890 Balance 774 / 774 189 / 189 Weight 58.967 kg 58.8 kg Narrative: GENERAL: Well-nourished well-developed female in in no acute distress laying in bed SKIN: Warm and dry. Examination of her right hip showed large blister has broken open, second open wound about 5 cm x 8 cm with fibrinous tissue with surrounding erythema with mild drainage, overall redness has decreased over area ;, miid induration examination of left hip showed resolving redness, no fluctuance palpated. CARDIOVASCULAR: Regular rate and rhythm. RESPIRATORY: No accessory muscle use. Clear to auscultation. Breath sounds equal bilaterally. GASTROINTESTINAL: Abdomen soft, non-tender, nondistended. Normal active bowel sounds MUSCULOSKELETAL: Extremities without clubbing, cyanosis, or edema. No obvious deformities. NEUROLOGICAL: Awake and alert to person place time and situation. Results Labs CBC & Chem 7: 09/03/18 08:21 09/03/18 06:30 Labs: Microbiology 09/02/18 17:19 Abscess - Hip Gram Stain - Final 09/02/18 17:19 Abscess - Hip Wound Culture - Final S. aureus MRSA 09/02/18 11:30 Blood - Peripheral Aerobic Blood Culture - Preliminary No growth in 2 days 09/02/18 11:30 Blood - Peripheral Anaerobic Blood Culture - Preliminary No growth in 2 days 09/02/18 11:35 Blood - Peripheral Aerobic Blood Culture - Preliminary No growth in 2 days 09/02/18 11:35 Blood - Peripheral Anaerobic Blood Culture - Preliminary No growth in 2 days Assessment and Plan (1) MRSA cellulitis: Code(s): L03.90 - Cellulitis, unspecified; B95.62 - Methicillin resistant Staphylococcus aureus infection as the cause of diseases classified elsewhere Status: Acute (2) Unspecified open wound, right hip, initial encounter: Code(s): S71.001A - Unspecified open wound, right hip, initial encounter Status: Acute Plan 57-year-old white female complete her detox recently for IV drug use presents with infected right hip wound and early development of left hip cellulitis with failed outpatient treatment with p.o. Bactrim Infected right hip wound with cellulitis with early development left hip cellulitisCT did not reveal any underlying abscess. Patient was given IV clindamycin in ED, has clinically improved on cefepime and vancomycin. Follow- up with final wound culture and blood cultures. Wound cultures showing MRSA, will discontinue cefepime today and start p.o. Bactrim in addition to continue IV vancomycin. Start Santyl to the right hip wound until evaluated by wound care service. History of IV drug use, patient counseled and states that she completed her detox at [facility]. Avoid narcotics for pain. History of anxiety with a previous history of seizure disorder questionable benzo withdrawal-Ativan as needed. GERDchange PPI to H2 ge DVT prophylaxisheparin Discharged home in the next 24-48 hours pending final culture and sensitivity results. Progress Note: Quality VTE Deep Vein Thrombosis/Pulmonary Embolism Present on Admission: No
[2018-09-04] MEDS: Collagenase Oint 30 GM Tube TOPICAL SCH (16:59)
--- NOTE | 2018-09-04 18:03 | P.PNWCN ---
Wound Care Nurse Consult Description: Received wound management consult for R hip infected wound from Doctor Mariam. Communicated with: Doctor Mariam and RN Steffanie Dejesus Recommendation: 1.Please cleanse wounds to R hip area with normal saline only and pat dry. 2.Mix Santyl and mupirocin ointment 50/50 and apply to wound beds dedra thickness. 3. Cover with Xeroform in single layer 4. Then cover with bordered gauze. 5. Change dressing daily. 6. For discharge patient may transition to mupirocin ointment and with dry cover dressing daily Wound/Pressure Injury - Wound Right Hip Wound Assessment: Ongoing Wound Type: Abscess Is This a Chronic Wound: No Requested from Provider a Wound Care Consult: Yes (Patient seen by inpatient wound care nurse today) Length (cm): 2 Width (cm): 3.3 Depth (cm): 0.4 (~0.4cm) Wound Bed Appearance: [place], Yellow Wound Bed Appearance: Wound bed presents with ~40% yellow slough, ~40% pink tissue and ~20% adipose tissue. Surrounding Tissue Appearance: Blanched/Dull, [place] Surrounding Tissue Temperature: Cool Drainage Description: Serosanguinous Drainage Amount: Scant Drainage Odor: No Odor Dressing Status: Changed Cleansing Solution: Saline Topical: Enzymatic Debridement Ointment Primary Dressing: Xeroform gauze Cover Dressing: bordered gauze Wound Dressing Change Date: 09/04/18 Wound Margin Description: Well defined and even Right Anterior Hip Wound Assessment: Ongoing Wound Type: Abscess Is This a Chronic Wound: No Requested from Provider a Wound Care Consult: Yes (Patient was seen by inpatient wound care today) Length (cm): 1.1 Width (cm): 2 Depth (cm): 0.1 (~0.1cm) Wound Bed Appearance: [place], Yellow Wound Bed Appearance: ~50% yellow tissue and ~40% pink tissue Surrounding Tissue Appearance: Blanched/Dull, [place] Surrounding Tissue Temperature: Cool Drainage Description: Serosanguinous Drainage Amount: Scant Drainage Odor: No Odor Dressing Status: Changed Cleansing Solution: Saline Topical: Enzymatic Debridement Ointment Primary Dressing: Xerform gauze Cover Dressing: bordered gauze Wound Dressing Change Date: 09/04/18 Wound Margin Description: Poorly defined Right Proximal Hip wound Wound Assessment: Ongoing Wound Type: Abscess Is This a Chronic Wound: No Requested from Provider a Wound Care Consult: Yes Length (cm): 0.4 Width (cm): 1 Depth (cm): 0.1 (~0.1cm) Wound Bed Appearance: [place], Yellow Wound Bed Appearance: Wound bed presents with ~50% pink tissue and ~50% yellow tissue. Surrounding Tissue Appearance: Blanched/Dull, [place] Surrounding Tissue Temperature: Cool Drainage Description: Serosanguinous Drainage Amount: Scant Drainage Odor: No Odor Dressing Status: Changed Cleansing Solution: Saline Topical: Enzymatic Debridement Ointment Primary Dressing: Xerform gauze Cover Dressing: bordered gauze Wound Dressing Change Date: 09/04/18 Wound Margin Description: Well defined and open. - Additional Information Patient seen on H pod for evaluation of R hip wounds. Patient is laying in bed awake, alert to person, place, time and situation. When asked about wounds, patient admits to "skin popping heroin" as the cause of her wounds. Removed dressings in place to reveal 3 open wounds to R hip area. R hip wound presents with ~40% yellow slough, ~40% pink tissue and ~20% adipose. Wound margins are even and well defined. Periwound presents with 2 erythematous, raised, indurated areas at 5 and 6 o'clock. Wound drainage is scant and sero-sanguinous without foul odor. Wound to R anterior hip presents with ~50% yellow tissue and ~40% pink tissue. Wound drainage is scant and sero-sanguinous without odor. Periwound is slightly indurated. R proximal Hip wound bed presents with ~50% pink tissue and ~50% yellow tissue.. Wound drainage is also scant, sero-sanguinous withodor. Wound margins are even and well defined. All wounds were cleansed with normal saline and patted dry. Applied Santyl Dedra thickness to wound beds. Then covered wounds with Xeroform gauze. Secured dressings in place with bordered gauze. Patient tolerated procedure well. Wounds are positive for MRSA. Full wound description, measurements and wound care recommendations are noted above.
[2018-09-05] MEDS ORDERED: Pharmacy Ordered Lab Info OTHER ONE (04:45)
[2018-09-05] MEDS: Vancomycin Inj 1,000 MG in Sodium Chlor 0.9% Inj 250 ML IV.SIG SCH (05:23)
[2018-09-05] MEDS: LORazepam 0.5 MG Tablet PO PRN (07:38)
[2018-09-05] MEDS: Heparin - SQ 10,000 UNITS/ML Vial SQ SCH (08:29)
[2018-09-05] MEDS: Famotidine 20 MG Tablet PO SCH (08:30)
[2018-09-05] MEDS: Senna/Docusate Sodium 8.6/50 MG Tablet PO SCH (08:30)
--- NOTE | 2018-09-05 09:35 | P.DS ---
DS: Providers Date of admission: 09/02/18 17:46 Primary care physician: No Primary Care Physician Brief History from admission: 57-year-old white female with a history of IV drug abuse, bipolar disorder, GERD who was sent here from [facility] secondary to worsening right hip pain along with increased redness and drainage from an open wound despite being on p.o. Bactrim for the past 3 days. Patient reports that she completed her detox. at [facility] and was on Sebutex and Ativan as needed for anxiety and stated that she will not be returning there when discharge from the hospital. She also admitted that she is currently homeless. She reports the redness and lesions started about a week ago and despite being on antibiotics for the past 3 days has worsened. She complains of intermittent chills or fever. She also reported development of a bump over the left hip over the past day. She did admit to injecting IV drugs both on her right and left hip area. Of note, patient had history of left hip osteomyelitis and was treated for the next 2-3 months history of IV antibiotics and had multiple surgeries over the left hip about 18 months ago. Patient update on day of discharge: Doing well. No fevers or chills. Would like help to get outpatient medication and ride to home. DS: Diagnosis Discharge Diagnosis (1) MRSA cellulitis: Status: Acute (2) Unspecified open wound, right hip, initial encounter: Status: Acute DS: Summary 57-year-old white female who recently completed her detox recently for IV drug use was admitted for infected right hip wound and cellulitis with failed outpatient treatment. She responded well to IV cefepime and vancomycin and later cefepime was discontinued when final wound culture showed MRSA. Her oral Bactrim was restarted and local wound care was performed. She was advised to use combination with Santyl and mupirocin and applied to wound beds and covered with Xeroform and single layer and cover with border gauze. She was counseled to transition to mupirocin ointment as an outpatient for continue local wound care. She was encouraged to continue to stay off of IV recreational drug use. Time Spent with Patient Total time spent providing and/or coordinating discharge services: Less than 30 minutes Quality: VTE Deep Vein Thrombosis/Pulmonary Embolism Present on Admission: No Exam Narrative Exam Narrative: GENERAL: Well-nourished well-developed female in in no acute distress laying in bed SKIN: Warm and dry. Examination of her right hip showed large blister has broken open, second open wound about 5 cm x 8 cm with fibrinous tissue with surrounding erythema with mild drainage, overall redness has decreased and resolved over area; left hip showed resolving redness, no fluctuance palpated. CARDIOVASCULAR: Regular rate and rhythm. RESPIRATORY: No accessory muscle use. Clear to auscultation. Breath sounds equal bilaterally. GASTROINTESTINAL: Abdomen soft, non-tender, nondistended. Normal active bowel sounds MUSCULOSKELETAL: Extremities without clubbing, cyanosis, or edema. No obvious deformities. NEUROLOGICAL: Awake and alert to person place time and situation Results Labs on day of discharge: Labs from last 24 hours 09/05/18 05:14 Vancomycin Trough 4.4 L Preliminary micro results at discharge 09/02/18 11:30 Aerobic Blood Culture - Preliminary Blood - Peripheral No growth in 2 days Anaerobic Blood Culture - Preliminary No growth in 2 days 09/02/18 11:35 Aerobic Blood Culture - Preliminary Blood - Peripheral No growth in 2 days Anaerobic Blood Culture - Preliminary No growth in 2 days Impressions ITS Impressions Hip CT 09/02/18 12:27 CONCLUSION: 1. No evidence for abscess. 2. Multiple pathologically enlarged lymph nodes in the right groin. 3. Extensive and far advanced osteoarthritis left hip. Hip X-Ray 09/02/18 13:06 CONCLUSION: Extensive and far advanced osteoarthritis left hip joint. Knee X-Ray 09/02/18 13:06 CONCLUSION: Osteopenia otherwise negative. There is no joint effusion Discharge Plan Discharge Disposition Patient Disposition: Discharge Home Discharge Condition Condition: Good Discharge Order Discharge Orders: Discharge Order (Routine); Ordered 09/05/18 Ordered By: Jennyfer Becerra Physicians Team Primary Care Provider: Primary Care Candace Amezcua Attending Provider: Jennyfer Becerra Rxs /Orders / Referrals /Forms Prescriptions: New mupirocin 2 % Ointment 1 applicatio Topical BID Qty: 30 RF: 0 Continue sulfamethoxazole-trimethoprim [Bactrim DS] 800-160 mg tablet 1 tab PO Q12H Qty: 20 RF: 0 Discontinued Lasix RF: 0 Plavix RF: 0 Referrals: [facility] [Outside] - See Instructions ( Please call the physician's office to book the appointment to be seen within 1 week.) Primary Care Candace Amezcua [Primary Care Provider] - See Instructions Post Discharge Care Plan Care Plan Goals: Your Health Problems: right hip cellulitis Goals to Promote Your Health: * To prevent worsening of your condition * To maintain your health at the optimal level Directions to Meet Your Goals: * Take your medications as prescribed * Follow your dietary instruction * Follow activity as directed * Keep your appointments as scheduled * Take your immunizations and boosters as scheduled * If your symptoms worsen call your PCP * If no PCP go to Urgent Care or Emergency Room Smoking is dangerous to your health. Avoid second hand smoke. You may reach the 24-hour crisis hotline for domestic abuse at . Status ED Status: Left Department
[2018-09-05] MEDS: Ketorolac Inj 30 MG/ML (IVP) Vial IV.PUSH PRN (10:07)
[2018-09-05] MEDS: Collagenase Oint 30 GM Tube TOPICAL SCH ×2 (10:23→11:37)
[2018-09-05] MEDS ORDERED: Vancomycin Inj 750 MG in Sodium Chlor 0.9% Inj 250 ML IV.SIG ONE (11:00)
[2018-09-05 11:57] VITALS: BP 123/67; PULSE 69; RESP 12; TEMP 98.1; O2SAT 97
[2018-09-05] MEDS ORDERED: Vancomycin Inj 1,250 MG in Sodium Chlor 0.9% Inj 250 ML IV.SIG SCH (17:00)
[2018-09-06] MEDS ORDERED: Pharmacy Ordered Lab Info OTHER ONE (16:45)
== END 2018-09-05 13:15 | disposition home or self-care (01) | DRG 603 ==
LOC: NEDA 09:56 → NEPB 09:56 → NEPHCDU 21:05
PROVIDERS: ADMIT Family Medicine; ATTEND Family Medicine
DX: S71.001A Unspecified open wound, right hip, initial encounter; G40.909 Epilepsy, unspecified, not intractable, without status epilepticus; F31.9 Bipolar disorder, unspecified; R59.9 Enlarged lymph nodes, unspecified; B95.62 Methicillin resistant Staphylococcus aureus infection as the cause of diseases classified elsewhere; J44.9 Chronic obstructive pulmonary disease, unspecified; L03.115 Cellulitis of right lower limb; F19.11 Other psychoactive substance abuse, in remission; F41.9 Anxiety disorder, unspecified; F17.210 Nicotine dependence, cigarettes, uncomplicated; Z80.1 Family history of malignant neoplasm of trachea, bronchus and lung; K21.9 Gastro-esophageal reflux disease without esophagitis; M25.562 Pain in left knee; Z59.0 Homelessness
CPT/HCPCS: 73502; 73564; 73701; 80048; 80202; 83605; 85025; 86403; 87040; 87070; 87147; 87186; 87205; 90765; 96365; 97161; 99285; J0692; J1644; J1885; J3370; J7050; Q9967